=== PATIENT | female | born 1955 | race Hispanic/Latino ===

== ENCOUNTER → 2018-09-18 | Outpatient (CLI) | payer OTHER | END | disposition home or self-care (01) | LOC: RAH 09:02 | PROVIDERS: ATTEND Family Medicine | DX: Z12.31 Encounter for screening mammogram for malignant neoplasm of breast (principal) | CPT/HCPCS: 77067 ==

== ENCOUNTER → 2024-10-07 | Outpatient (CLI) | payer OTHER ==
[~2024-10-07] MED LIST: IOHEXOL 350 MG/ML 100ML INFUS..BTL IV ONE
--- NOTE | 2024-10-07 14:06 | HMCIMG ---
CT NECK SOFT TISS W/CONTRAST HISTORY: Post thyroidectomy COMPARISON: None TECHNIQUE: Multiple sequential axial images of the soft tissue neck were obtained. Patient was given 100 cc of Omnipaque through intravenous route. FINDINGS: There are streak artifacts caused by dental implant material limiting evaluation. Thyroid gland has been removed. There are degenerative changes of the cervical spine with spondylosis. There are enlargement of the left sternocleidomastoid muscle when compared to right may be related to inflammatory changes with other possibility not excluded. Clinical correlation is recommended. Postop changes are also seen. Visualized portion of brain parenchyma within the posterior fossa is within normal limits. Parapharyngeal fat planes are preserved bilaterally. Parotid glands and submandibular glands are grossly within normal limits. There are normal size cervical lymph nodes. The airway is patent. Visualized portion of the lung apices are unremarkable. IMPRESSION: 1. There are streak artifacts caused by dental implant material limiting evaluation. Thyroid gland has been removed. There are degenerative changes of the cervical spine with spondylosis. There are enlargement of the left sternocleidomastoid muscle when compared to right may be related to inflammatory changes with other possibility not excluded. Clinical correlation is recommended. Postop changes are also seen. CT was performed with one or more following dose reduction techniques: automated exposure control, adjustment of the mA and kv according to patient's size, or use of a iterative reconstruction technique.
== END | disposition home or self-care (01) ==
LOC: RAH 12:41
PROVIDERS: ATTEND Surgery
DX: M62.89 Other specified disorders of muscle (principal); R22.1 Localized swelling, mass and lump, neck; M47.812 Spondylosis without myelopathy or radiculopathy, cervical region; E89.0 Postprocedural hypothyroidism; Z96.5 Presence of tooth-root and mandibular implants
CPT/HCPCS: 70491; Q9967

== ENCOUNTER 2024-11-01 14:31 | Inpatient (IN) | payer OTHER ==
[~2024-11-01] VITALS: Ht 157.5 cm; Wt 61.4 kg
--- NOTE | 2024-11-01 14:42 | ERN ---
ED Note History of Present Illness Stated Complaint: INSECT BITE Chief Complaint: Insect Bite Time Seen by MD: 14:34 Dictation: PATIENT IS A 69-YEAR-OLD FEMALE HERE WITH PAINFUL SWELLING AND A PUSTULE TO THE DORSUM OF THE PROXIMAL LEFT 5TH FINGER ONSET ONE WEEK PRIOR TO ARRIVAL. IT IS ERYTHEMATOUS AND SWOLLEN PATIENT HAS BEEN ON [id number] FOR SEVERAL DAYS BY HER PRIMARY CARE DOCTOR. NO FEVER NO CHILLS Allergies: Coded Allergies: No Known Drug Allergies (Unverified Allergy, Unknown, 11/01/24) Past Medical History History: Not Applicable RN Note Reviewed/Agreed w/PFSH: Yes Review of System Dictation CONSTITUTIONAL: NEGATIVE EXCEPT FOR HPI HEAD/FACE: NEGATIVE EXCEPT FOR HPI EENT: NEGATIVE EXCEPT FOR HPI RESPIRATORY: NEGATIVE EXCEPT FOR HPI GASTROINTESTINAL/ABDOMINAL: NEGATIVE EXCEPT FOR HPI GENITOURINARY: NEGATIVE EXCEPT FOR HPI MUSCULOSKELETAL: NEGATIVE EXCEPT FOR HPI LEFT 5TH FINGER SWELLING ERYTHEMA TENDERNESS WITH PUSTULE INTEGUMENTARY: NEGATIVE EXCEPT FOR HPI NEUROLOGICAL/PSYCH: NEGATIVE EXCEPT FOR HPI HEMATOLOGIC/LYMPHATIC: NEGATIVE EXCEPT FOR HPI ALL SYSTEMS NEGATIVE, EXCEPT NOTED ABOVE. 13 POINT REVIEW OF SYSTEMS ASSESSED AND ALL NEGATIVE EXCEPT FOR ABOVE. Initial Vital Sign VS Vital Signs Date Time Temp Pulse Resp B/P (MAP) Pulse Ox O2 Delivery O2 Flow Rate FiO2 11/01/24 14:35 99.0 102 20 162/82 97 0 11/01/24 14:41 Room Air* 21 Physical Exam Dictation VITAL SIGNS REVIEWED GENERAL APPEARANCE: ALERT, ORIENTED X 3, MODERATE ACUTE DISTRESS, WELL DEVELOPED, NOURISHED. HEAD AND FACE: NON-TRAUMATIC. EYES: PERRL, PINK CONJUNCTIVAS, EYELID NO TRAUMA, ANTERIOR CHAMBER WITH ARCUS SENILIS. EARS: PINNAS INTACT AND NO SIGNS OF TRAUMA OR ERYTHEMA EAR CANALS CLEAR AND NO DISCHARGE TM NO ERYTHEMA NOSE: NO DISCHARGE, NO BLEEDING. OROPHARYNX: MOUTH NORMAL, TONGUE PINK, PHARYNX CLEAR,NO ERYTHEMA, TONSILS NO EXUDATES, NO ABSCESSES NOTED, MUCOUS MEMBRANE MOIST NECK: SUPPLE, NON-TENDER, NO THYROMEGALY, NO MASSES, NO JVD, NO BRUITS BREAST:DEFERRED CHEST:NO TENDERNESS, NO CREPITUS, NO PARADOXICAL MOVEMENT, NO RETRACTIONS LUNGS:CLEAR, WELL-VENTILATED, SYMMETRIC, NO RALES, NO WHEEZING, NO RHONCHI, NO STRIDOR, GOOD BREATH SOUNDS BILATERALLY HEART: REGULAR RATE, REGULAR RHYTHM, NO MURMUR, NO GALLOPS VASCULAR: NO PERIPHERAL EDEMA, ABDOMEN: SOFT, POSITIVE BOWEL SOUNDS, NONDISTENDED, NO GUARDING, NONTENDER, NO REBOUND, NO MASSES NO HEPATOMEGALY, NO SPLENOMEGALY, NO MOYA'S SIGN, NO HERNIAS. RECTAL: DEFERRED GENITAL: DEFERRED NEUROLOGICAL: NORMAL SPEECH, MOTOR FUNCTION INTACT, SENSORY FUNCTION INTACT MUSCULOSKELETAL: NECK NONTENDER, FULL RANGE OF MOTION, BACK NONTENDER, FULL RANGE OF MOTION, EXTREMITIES: DORSAL LEFT 5TH FINGER PROXIMAL WITH ERYTHEMA SWELLING, swelling extends who metacarpal joint SKIN: COLOR PINK, DRY, NO TURGOR, NO RASH, NO LACERATIONS, NO ABRASIONS, NO CONTUSIONS. LYMPHATIC: DEFERRED Results (Laboratory/Radiology) Laboratory/Radiology Laboratory Tests Test 11/01/24 14:53 White Blood Count 10.6 K/uL (4.8-10.8) Red Blood Count 4.10 MIL/uL (4.00-5.50) Hemoglobin 13.1 g/dL (12.0-16.0) Hematocrit 38.3 % (36-48) Mean Corpuscular Volume 93.4 fL (79-99) Mean Corpuscular Hemoglobin 32.0 pg (27.0-33.0) Mean Corpuscular Hemoglobin Concent 34.2 g/dL (32.0-36.0) Red Cell Distribution Width 13.1 % (11.0-15.5) Platelet Count 177 K/uL (130-400) Mean Platelet Volume 11.0 fL (7.5-10.5) H Immature Granulocyte % (Auto) 0.4 % (0-1) Neutrophils (%) (Auto) 78.7 % (40.0-77.0) H Lymphocytes (%) (Auto) 11.9 % (21.0-51.0) L Monocytes (%) (Auto) 8.2 % (3.0-13.0) Eosinophils (%) (Auto) 0.6 % (0.0-8.0) Basophils (%) (Auto) 0.2 % (0.0-5.0) Neutrophils # (Auto) 8.3 K/uL (1.8-7.7) H Lymphocytes # (Auto) 1.3 K/uL (1.0-4.8) Monocytes # (Auto) 0.9 K/uL (0.1-1.0) Eosinophils # (Auto) 0.06 K/uL (0.00-0.70) Basophils # (Auto) 0.02 K/uL (0.00-0.20) Absolute Immature Granulocyte (auto 0.04 K/uL (0-1) Nucleated Red Blood Cells 0.0 % (0.0-0.19) Sodium Level 138 mmol/L (136-145) Potassium Level 4.0 mmol/L (3.5-5.1) Chloride Level 101 mmol/L (101-111) Carbon Dioxide Level 32 mmol/L (21-32) Blood Urea Nitrogen 8 mg/dL (7-18) Creatinine 0.7 mg/dL (0.5-1.0) Glomerular Filtration Rate Calc 92 mL/min (>90) Random Glucose 118 mg/dL (70-105) H Lactic Acid Level 1.2 mmol/L (0.8-2.5) Total Calcium 9.4 mg/dL (8.5-10.1) Labs Reviewed?: Yes ED Course ED Course Orders Procedure Category Date Status Time Blood Cult RYAN 11/01/24 In Process 14:38 Lactic Acid LAB 11/01/24 Complete 14:38 Cbc With Differential LAB 11/01/24 Complete 14:38 Basic Metabolic Panel LAB 11/01/24 Complete 14:38 Lidocaine Hcl 1% 20ml PHA 11/01/24 Complete Vial (Lidocaine Hc 15:00 0.9%Nacl 1000ml (Ns PHA 11/01/24 Complete 1000ml) 18:00 Ketorolac PHA 11/01/24 Complete Tromethamine 30mg/Ml 18:00 Clindamycin Ivpb PHA 11/01/24 Complete 900mg/50ml (Cleocin 17:49 Hand 3+Vws Lt RAD 11/01/24 Taken 17:51 Lidocaine Hcl 1% 20ml PHA 11/01/24 Complete Vial (Lidocaine Hc 18:00 Current Medications Medications (Trade) Dose Ordered Sig/Deion Route PRN Reason Start Time Stop Time Status Last Admin Dose Admin Clindamycin HCl/ Dextrose (Cleocin Ivpb 900mg) 900 mg ONCE STAT IV 11/01/24 17:49 11/01/24 17:52 DC Ketorolac Tromethamine (toRADol) 30 mg ONCE ONCE IVP 11/01/24 18:00 11/01/24 18:01 DC Lidocaine HCl (Lidocaine HCl 1% 20ml Vial) 5 ml ONCE INJ 11/01/24 15:00 11/01/24 17:52 DC Lidocaine HCl (Lidocaine HCl 1% 20ml Vial) 5 ml ONCE ONCE INJ 11/01/24 18:00 11/01/24 18:01 DC Sodium Chloride 1,000 ml @ 0 mls/hr ONCE ONCE IV 11/01/24 18:00 11/01/24 18:01 DC Vital Signs Date Time Temp Pulse Resp B/P (MAP) Pulse Ox O2 Delivery O2 Flow Rate FiO2 11/01/24 16:42 98.4 85 19 151/83 97 Room Air* 0 21 11/01/24 14:41 99.0 97 20 162/82 97 Room Air* 0 21 11/01/24 14:35 99.0 102 20 162/82 97 0 Seventeen 50 patient reassessed and we will admit patient for cellulitis of the left 5th finger an outpatient treatment failure. She will be given IV fluids/Toradol and clindamycin 900 mg to load 1812 2, SPOKE WITH ONI CHINP HOSPITALIST FOR BENCHMARK SHE AGREED TO ADMIT PATIENT REVIEWED LABS Medical Decision Making MDM MDM: Differential diagnosis: Infected insect bite/cellulitis/electrolyte imbalance/dehydration/sepsis/osteo Rationale: Tests considered and ordered secondary to shared decision making include: labs, and radiology Previous outside records reviewed: Old ER visits. Reviewed Risk of complication and/or morbidity or mortality of patient management: None Medications-Per medication reconciliation none Need for hospitalization: Patient does meet criteria for hospitalization. See nurse's notes Need for emergency major/minor surgery: No There are no social concerns with this patient. Prescription drug management spoke with patient at length and she agrees to admission for finger cellulitis and failed outpatient treatment Prescriptions will include symptomatic care Patient's prior external medical records from other ER visits were reviewed by me as indicated. Prior testing and results from previous visits were reviewed. Prior tests were taken into account with medical decision making and resource utilization, independent historian/historians were used to obtain complete medical history. I independently interpreted the test that were performed, results were reviewed by me and considered findings on radiology if ordered. Medical management and examination interpretation discussions were had by me with other qualified healthcare professionals as indicated for the patient's care. DX & DISP Disposition: Inpatient Departure Impression: Primary Impression: Cellulitis of left little finger Additional Impressions: Failure of outpatient treatment, Hyperglycemia Condition: Stable Referrals: PRIYA LÓPEZ DO (PCP) Time of Disposition: 17:54 I have reviewed the case, and I agree with, Diagnosis and Plan MONI TOBIAS NP Nov 01, 2024 14:42
[2024-11-01] MEDS ORDERED: LIDOCAINE HCL 1% 20 ML VIAL INJ SCH (15:00)
[2024-11-01 15:03] LABS: BASOPHILS # (AUTO) 0.02 K/uL (0.00-0.20); BASOPHILS % (AUTO) 0.2 % (0.0-5.0); EOSINOPHILS # (AUTO) 0.06 K/uL (0.00-0.70); EOSINOPHILS % (AUTO) 0.6 % (0.0-8.0); HEMATOCRIT 38.3 % (36-48); IMMATURE GRANULOCYTE ABSOLUTE 0.04 K/uL (0-1); LYMPHOCYTES # (AUTO) 1.3 K/uL (1.0-4.8); LYMPHOCYTES % (AUTO) 11.9 % (21.0-51.0); MEAN CORPUSCULAR HGB CONC 34.2 g/dL (32.0-36.0); MEAN CORPUSCULAR VOLUME 93.4 fL (79-99); MONOCYTES # (AUTO) 0.9 K/uL (0.1-1.0); MONOCYTES % (AUTO) 8.2 % (3.0-13.0); NEUTROPHILS # (AUTO) 8.3 K/uL (1.8-7.7); NEUTROPHILS % (AUTO) 78.7 % (40.0-77.0); PLATELET COUNT (AUTO) 177 K/uL (130-400); RED CELL DISTRIBUTION WIDTH 13.1 % (11.0-15.5); WHITE BLOOD COUNT (AUTO) 10.6 K/uL (4.8-10.8)
[2024-11-01 15:15] LABS: CREATININE 0.7 mg/dL (0.5-1.0)
[2024-11-01] MEDS ORDERED: acetaMINOPHEN 325 MG TAB PO PRN (18:30)
[2024-11-01] MEDS ORDERED: acetaMINOPHEN 650 MG SUPPOSITORY RC PRN (18:30)
[2024-11-01] MEDS ORDERED: hydrALAZine 20MG/ML VIAL IV PRN (18:30)
[2024-11-01] MEDS ORDERED: doCUSate SODIUM 100 MG CAP PO PRN (18:30)
[2024-11-01] MEDS ORDERED: LACTULOSE 20 GM/30 ML UDCUP PO PRN (18:30)
[2024-11-01] MEDS ORDERED: TEMAZepam 15 MG CAPSULE PO PRN (18:30)
[2024-11-01] MEDS ORDERED: ondanSETRON 4MG INJ IVP PRN (18:30)
[2024-11-01] MEDS: 0.9%NACL 1000ML 1,000 ML IV ONE (19:12)
[2024-11-01] MEDS: CLINDAMYCIN IVPB 900MG/50ML IV STA (19:13)
[2024-11-01] MEDS: ketOROlac 30MG VIAL (30MG/ML) IVP ONE (19:13)
[2024-11-01] MEDS: LIDOCAINE HCL 1% 20 ML VIAL INJ ONE (19:13)
[2024-11-01 20:25] VITALS: BP 141/68; PULSE 90; RESP 18; TEMP 98.3
[2024-11-01] MEDS: ceFEPime HCL 1 GM VIAL IVPB SCH (20:59)
[2024-11-01] MEDS: INSULIN humuLIN R 100 UNIT/ML 3ML SQ SCH (21:00)
[2024-11-01] MEDS ORDERED: ATOR10TA69 PO (21:21)
[2024-11-01] MEDS ORDERED: ALEN70TA80 PO (21:21)
[2024-11-01] MEDS ORDERED: CALCIUM PO (21:21)
[2024-11-01] MEDS ORDERED: CHOLECALCIFEROL PO (21:21)
[2024-11-01] MEDS ORDERED: MULT-1203 PO (21:22)
--- NOTE | 2024-11-01 22:39 | HMCIMG ---
HAND 3+VWS LT INDICATION: Left 5th finger swelling tenderness erythema proximal TECHNIQUE: HAND 3+VWS LT. FINDINGS/IMPRESSION: No displaced fracture or dislocation is seen. Correlate clinically. There is diffuse soft tissue swelling of the fifth digit. Advanced degenerative changes of the first carpal metacarpal joint is seen
[2024-11-01 23:48] VITALS: BP 131/75; PULSE 72; RESP 18; TEMP 97.9
--- NOTE | 2024-11-02 01:53 | HP ---
[facility] HISTORY & PHYSICAL Date Patient Seen: Nov 02, 2024 Time of Visit: 01:53 Supervising Physician: Dr. Mark Ellis Primary Care Physician: Dr. Padma Elder Outpatient Specialists: Inpatient Consults: PROBLEM LIST: Sepsis without septic shock, POA Cellulitis of left fifth finger with failed outpatient treatment Diabetes mellitus with hyperglycemia Uncontrolled hypertension Hypercholesterolemia History of thyroid mass HPI: Ms. King is a 69-year-old female with a history of diabetes kelly itus and hypertension who presented to [facility] ED for evaluation of left finger edema and pustule onset one week prior to arrival. She reports that she believes that this was caused by insect bite. The patient reported that she was started on Augmentin 875 mg for several days by her PCP with no improvement. The patient denied any fevers, chills, any other problem or concern. The patient presented with a temperature 99.0 F, heart rate 102, respirations 20, blood pressure 162/82, 97% room air. WBC & lactic acid are WNL neut % 78.9, lymph % 11.9, neut # 8.3. Glusoce 118. The ED administered IV fluids, Toradol, and clindamycin 900 mg load. ED physician requested patient be admitted with the diagnosis of cellulitis of left finger, failed outpatient treatment, and hyperglycemia. I assessed the patient at bedside in 330. Patient's breathing was even, unlabored. Patient appeared comfortable was in no distress. She reports after IV antibiotic therapy these willingness a little down and has less pain. I informed the patient of labs, diagnosis, and plan of care. The patient verbalized understanding and is in agreement with the plan. Plan and assessment listed below. PAST MEDICAL HX: see above PAST SURGICAL HX: noncontributory SOCIAL HISTORY: No tobacco, ETOH, or illicit drug use Coded Allergies: No Known Drug Allergies (Unverified Allergy, Unknown, 11/01/24) REVIEW OF SYSTEMS: 12 point ROS reviewed with patient. Pertinent positives mentioned above. Otherwise negative. PHYSICAL EXAM: GENERAL: Alert, awake oriented x 3 HEENT: EOMI, Sclera non icteric, moist mucosa NECK: Supple, no JVD, trachea midline LUNGS: Clear breath sounds bilaterally. No wheezes HEART: Regular rate and rhythm. Normal S1 and S2, without murmurs ABD: Abdomen soft, nontender. Bowel sounds present EXT: No clubbing cyanosis or edema. Capillary refills and peripheral are within normal limits NEURO: Alert and oriented to person, follows commands Vital Signs (last 8hr) Date Time Temp Pulse Resp B/P (MAP) Pulse Ox O2 Delivery O2 Flow Rate FiO2 11/01/24 23:48 97.9 72 18 131/75 97 Room Air 11/01/24 21:15 Room Air* 0 21 11/01/24 20:25 98.2 90 18 141/68 97 Room Air LABS: Hematology Labs: Test 11/01/24 14:53 Range/Units White Blood Count 10.6 4.8-10.8 K/uL Red Blood Count 4.10 4.00-5.50 MIL/uL Hemoglobin 13.1 12.0-16.0 g/dL Hematocrit 38.3 36-48 % Mean Corpuscular Volume 93.4 79-99 fL Mean Corpuscular Hemoglobin 32.0 27.0-33.0 pg Mean Corpuscular Hemoglobin Concent 34.2 32.0-36.0 g/dL Red Cell Distribution Width 13.1 11.0-15.5 % Platelet Count 177 130-400 K/uL Mean Platelet Volume 11.0 H 7.5-10.5 fL Immature Granulocyte % (Auto) 0.4 0-1 % Neutrophils (%) (Auto) 78.7 H 40.0-77.0 % Lymphocytes (%) (Auto) 11.9 L 21.0-51.0 % Monocytes (%) (Auto) 8.2 3.0-13.0 % Eosinophils (%) (Auto) 0.6 0.0-8.0 % Basophils (%) (Auto) 0.2 0.0-5.0 % Neutrophils # (Auto) 8.3 H 1.8-7.7 K/uL Lymphocytes # (Auto) 1.3 1.0-4.8 K/uL Monocytes # (Auto) 0.9 0.1-1.0 K/uL Eosinophils # (Auto) 0.06 0.00-0.70 K/uL Basophils # (Auto) 0.02 0.00-0.20 K/uL Absolute Immature Granulocyte (auto 0.04 0-1 K/uL Nucleated Red Blood Cells 0.0 0.0-0.19 % Chemistry Labs: Test 11/01/24 14:53 Range/Units Sodium Level 138 136-145 mmol/L Potassium Level 4.0 3.5-5.1 mmol/L Chloride Level 101 101-111 mmol/L Carbon Dioxide Level 32 21-32 mmol/L Blood Urea Nitrogen 8 7-18 mg/dL Creatinine 0.7 0.5-1.0 mg/dL Glomerular Filtration Rate Calc 92 >90 mL/min Random Glucose 118 H 70-105 mg/dL Lactic Acid Level 1.2 0.8-2.5 mmol/L Total Calcium 9.4 8.5-10.1 mg/dL DIAGNOSTICS / RADIOLOGY RESULTS: [ ] PLAN Admit to medical floor. Obtain aerobic and anaerobic cultures. Continue clindamycin started in ED. Add cefepime IV. Reconcile home medications once available P.r.n. medications for: Pain management, fever, nausea, vomiting, constipation, hypertension. Glucometer checks a.c. and HS with insulin regular sliding scale per protocol. Monitor renal and liver function. Monitor electrolytes and treat accordingly. DVT and GI prophylaxis. A.m. labs NEURO: Minimize central acting medications as possible. Maintain fall precautions, adequate lighting during the day PULMONARY: Supplemental 02 as needed. Maintain aspiration precautions at all times CARDIOVASCULAR: Follow hemodynamics. Vital signs per facility protocol GI & NUTRITION: Continue with nutritional support. Continue stool softeners and laxatives as needed. KIDNEYS & ELECTROLYTES: Strict monitoring of intake, output and overall fluid balance. Avoid nephrotoxic medications to the extent possible. Medications to be dosed according to renal function. Monitor electrolytes and replace as needed ENDOCRINE: Maintain blood glucose between 100-180 at all times. Hypoglycemia protocol in place INFECTIOUS DISEASE: Trend temperature, WBC and procalcitonin level Follow cultures, deescalate antibiotics as soon as possible. Panculture if new onset fever ONCOLOGY/HEMATOLOGY/COAGULATION: Monitor for s/s of bleeding Monitor hemoglobin, coagulation studies as needed SKIN: Pressure ulcer prevention per facility protocol Specialty mattress ORTHO/REHAB: Continue PT/OT Prophylaxis: Continue GI and DVT prophylaxis Code Status: Full Resuscitation Disposition: TBD The patient has seen and evaluated, the case has been discussed with the SUPERVISOR STRIPPING, I agree with the clinical findings and plan of care, time spend at the bedside more than 40 minutes. MERCEDES COE Nov 02, 2024 01:53 MARK ELLIS MD Nov 07, 2024 09:55
[2024-11-02] MEDS: CLINDAMYCIN IVPB 600MG/50ML 50 ML IV SCH (02:01)
[2024-11-02 04:07] VITALS: BP 128/67; PULSE 71; RESP 16; TEMP 98.6
[2024-11-02 05:31] LABS: BASOPHILS # (AUTO) 0.02 K/uL (0.00-0.20); BASOPHILS % (AUTO) 0.3 % (0.0-5.0); EOSINOPHILS # (AUTO) 0.12 K/uL (0.00-0.70); EOSINOPHILS % (AUTO) 1.8 % (0.0-8.0); HEMATOCRIT 34.9 % (36-48); IMMATURE GRANULOCYTE ABSOLUTE 0.03 K/uL (0-1); LYMPHOCYTES # (AUTO) 1.1 K/uL (1.0-4.8); LYMPHOCYTES % (AUTO) 16.5 % (21.0-51.0); MEAN CORPUSCULAR HEMOGLOBIN 31.6 pg (27.0-33.0); MEAN CORPUSCULAR HGB CONC 33.2 g/dL (32.0-36.0); MEAN CORPUSCULAR VOLUME 95.1 fL (79-99); MONOCYTES # (AUTO) 0.8 K/uL (0.1-1.0); MONOCYTES % (AUTO) 11.6 % (3.0-13.0); NEUTROPHILS # (AUTO) 4.7 K/uL (1.8-7.7); NEUTROPHILS % (AUTO) 69.4 % (40.0-77.0); PLATELET COUNT (AUTO) 154 K/uL (130-400); RED BLOOD CELL COUNT(AUTO) 3.67 MIL/uL (4.00-5.50); RED CELL DISTRIBUTION WIDTH 12.9 % (11.0-15.5); WHITE BLOOD COUNT (AUTO) 6.8 K/uL (4.8-10.8)
[2024-11-02 06:04] LABS: CREATININE 0.6 mg/dL (0.5-1.0); MAGNESIUM 1.8 mg/dL (1.80-2.40); POTASSIUM 3.8 mmol/L (3.5-5.1); THYROID STIMULATING HORMONE 0.93 uIU/mL (0.36-3.74)
[2024-11-02 08:00] VITALS: BP 140/66; PULSE 78; RESP 18; TEMP 97.8
[2024-11-02] MEDS: PANTOPrazole 40 MG TAB DR PO SCH (10:34)
[2024-11-02] MEDS: ENOXAPARIN SODIUM 30 MG/0.3 ML SQ SCH (10:34)
[2024-11-02 12:00] VITALS: BP 143/65; PULSE 79; RESP 17; TEMP 97.8
[2024-11-02] MEDS: HYDROcodone/APAP 5/325 1 TAB TABLET PO PRN (13:59)
--- NOTE | 2024-11-02 15:31 | PN ---
[facility] PROGRESS NOTE Date Patient Seen: Nov 02, 2024 Time of Visit: 15:27 Supervising Physician: [Dr. Escobedo] Primary Care Physician: Dr. Padma Elder Outpatient Specialists: Inpatient Consults: PROBLEM LIST: Sepsis without septic shock, POA Cellulitis of left fifth finger with failed outpatient treatment Diabetes mellitus with hyperglycemia Uncontrolled hypertension Hypercholesterolemia History of thyroid mass INTERVAL HISTORY: [Blood pressure is 143/65 with a heart rate of 79, afebrile on room air. Patient was admitted for cellulitis of her left pinky. Her left digit is severely erythematous and inflamed with posteriorly debris noted. She is unable to bend her pinky due to the swelling. She failed outpatient treatment with Augmentin by her PCP. She has been initiated on clindamycin and cefepime. Her WBC today is 6, hemoglobin 11, platelets 154. Her BNP is within normal limits with a creatinine of 0.6, no electrolyte derangement. Her magnesium was 1.8 and TSH is 0.9. Blood cultures negative after24 hours. Pending wound cultures. Will consult general surgery for I&D.] REVIEW OF SYSTEMS: 12 point ROS reviewed with patient. Pertinent positives mentioned above. Otherwise negative. PHYSICAL EXAM: GENERAL: Alert, awake oriented x 3 HEENT: EOMI, Sclera non icteric, moist mucosa NECK: Supple, no JVD, trachea midline LUNGS: Clear breath sounds bilaterally. No wheezes HEART: Regular rate and rhythm. Normal S1 and S2, without murmurs ABD: Abdomen soft, nontender. Bowel sounds present EXT: No clubbing cyanosis or edema. Capillary refills and peripheral are within normal limits NEURO: Alert and oriented to person, follows commands Vital Signs (last 8hr) Date Time Temp Pulse Resp B/P (MAP) Pulse Ox O2 Delivery O2 Flow Rate FiO2 11/02/24 12:00 97.9 79 17 143/65 97 Room Air 21 11/02/24 08:00 97.9 78 18 140/66 96 Room Air 21 LABS: Hematology Labs: Test 11/02/24 04:51 Range/Units White Blood Count 6.8 # 4.8-10.8 K/uL Red Blood Count 3.67 L 4.00-5.50 MIL/uL Hemoglobin 11.6 L 12.0-16.0 g/dL Hematocrit 34.9 L 36-48 % Mean Corpuscular Volume 95.1 79-99 fL Mean Corpuscular Hemoglobin 31.6 27.0-33.0 pg Mean Corpuscular Hemoglobin Concent 33.2 32.0-36.0 g/dL Red Cell Distribution Width 12.9 11.0-15.5 % Platelet Count 154 130-400 K/uL Mean Platelet Volume 11.1 H 7.5-10.5 fL Immature Granulocyte % (Auto) 0.4 0-1 % Neutrophils (%) (Auto) 69.4 40.0-77.0 % Lymphocytes (%) (Auto) 16.5 L 21.0-51.0 % Monocytes (%) (Auto) 11.6 3.0-13.0 % Eosinophils (%) (Auto) 1.8 0.0-8.0 % Basophils (%) (Auto) 0.3 0.0-5.0 % Neutrophils # (Auto) 4.7 1.8-7.7 K/uL Lymphocytes # (Auto) 1.1 1.0-4.8 K/uL Monocytes # (Auto) 0.8 0.1-1.0 K/uL Eosinophils # (Auto) 0.12 0.00-0.70 K/uL Basophils # (Auto) 0.02 0.00-0.20 K/uL Absolute Immature Granulocyte (auto 0.03 0-1 K/uL Nucleated Red Blood Cells 0.0 0.0-0.19 % Chemistry Labs: Test 11/02/24 04:51 11/01/24 14:53 Range/Units Sodium Level 140 136-145 mmol/L Potassium Level 3.8 3.5-5.1 mmol/L Chloride Level 106 101-111 mmol/L Carbon Dioxide Level 28 21-32 mmol/L Blood Urea Nitrogen 8 7-18 mg/dL Creatinine 0.6 0.5-1.0 mg/dL Glomerular Filtration Rate Calc 96 >90 mL/min Random Glucose 90 70-105 mg/dL Total Calcium 8.4 L 8.5-10.1 mg/dL Phosphorus Level 4.0 2.5-4.9 mg/dL Magnesium Level 1.80 1.80-2.40 mg/dL Thyroid Stimulating Hormone (TSH) 0.93 0.36-3.74 uIU/mL Lactic Acid Level 1.2 0.8-2.5 mmol/L DIAGNOSTICS / RADIOLOGY RESULTS: [HAND 3+VWS LT INDICATION: Left 5th finger swelling tenderness erythema proximal TECHNIQUE: HAND 3+VWS LT. FINDINGS/IMPRESSION: No displaced fracture or dislocation is seen. Correlate clinically. There is diffuse soft tissue swelling of the fifth digit. Advanced degenerative changes of the first carpal metacarpal joint is seen] PLAN Admit to medical floor. Obtain aerobic and anaerobic cultures. Continue clindamycin started in ED. Add cefepime IV. Reconcile home medications once available P.r.n. medications for: Pain management, fever, nausea, vomiting, constipation, hypertension. Glucometer checks a.c. and HS with insulin regular sliding scale per protocol. Monitor renal and liver function. Monitor electrolytes and treat accordingly. DVT and GI prophylaxis. A.m. labs NEURO: Minimize central acting medications as possible. Maintain fall precautions, adequate lighting during the day PULMONARY: Supplemental 02 as needed. Maintain aspiration precautions at all times CARDIOVASCULAR: Follow hemodynamics. Vital signs per facility protocol GI & NUTRITION: Continue with nutritional support. Continue stool softeners and laxatives as needed. KIDNEYS & ELECTROLYTES: Strict monitoring of intake, output and overall fluid balance. Avoid nephrotoxic medications to the extent possible. Medications to be dosed according to renal function. Monitor electrolytes and replace as needed ENDOCRINE: Maintain blood glucose between 100-180 at all times. Hypoglycemia protocol in place INFECTIOUS DISEASE: Trend temperature, WBC and procalcitonin level Follow cultures, deescalate antibiotics as soon as possible. Panculture if new onset fever ONCOLOGY/HEMATOLOGY/COAGULATION: Monitor for s/s of bleeding Monitor hemoglobin, coagulation studies as needed SKIN: Pressure ulcer prevention per facility protocol Specialty mattress ORTHO/REHAB: Continue PT/OT Prophylaxis: Continue GI and DVT prophylaxis Code Status: Full Resuscitation Disposition: ADRIENNE NIETO Nov 02, 2024 15:31
[2024-11-02 16:00] VITALS: BP 157/73; PULSE 85; RESP 18; TEMP 97.9
[2024-11-02 20:00] VITALS: BP 160/75; PULSE 82; RESP 18; TEMP 98.4; O2SAT 97
[2024-11-02] MEDS: atorVAStatin 10 MG TABLET PO SCH (20:51)
[2024-11-03] VITALS (7 sets, daily range): BP systolic 121–141; BP diastolic 67–84; PULSE 73–97; RESP 18–20; TEMP 97.8–99; O2SAT 97–98
[2024-11-03 06:05] LABS: INR 0.99 (0.85-1.15); PROTHROMBIN TIME 11.1 SEC (9.6-11.6)
--- NOTE | 2024-11-03 07:36 | PN ---
[facility] PROGRESS NOTE Date Patient Seen: Nov 03, 2024 Time of Visit: 07:32 Supervising Physician: [Dr. Escobedo] Primary Care Physician: Dr. Padma Elder Outpatient Specialists: Inpatient Consults: PROBLEM LIST: Sepsis without septic shock, POA Cellulitis of left fifth finger with failed outpatient treatment Diabetes mellitus with hyperglycemia Uncontrolled hypertension Hypercholesterolemia History of thyroid mass INTERVAL HISTORY: [Blood pressure is 143/65 with a heart rate of 79, afebrile on room air. Patient was admitted for cellulitis of her left pinky. Her left digit is severely erythematous and inflamed with posteriorly debris noted. She is unable to bend her pinky due to the swelling. She failed outpatient treatment with Augmentin by her PCP. She has been initiated on clindamycin and cefepime. Her WBC today is 6, hemoglobin 11, platelets 154. Her BNP is within normal limits with a creatinine of 0.6, no electrolyte derangement. Her magnesium was 1.8 and TSH is 0.9. Blood cultures negative after24 hours. Pending wound cultures. Will consult general surgery for I&D.] 11/03 Labs show a WBC of 6, hgb-11, and platelets of 154. BMP is WNL without electrolyte disturbance with a creatinine of 0.6. Blood pressure is 141/73 with HR of 78, afebrile on room air. No osteo per hand X-ray. Blood culture is negative X 48 hrs. She continues on antibiotics, pending general surgery for I&D. Update: Nurse informed me that Dr. Davis does not perform I&D's on hand, will consult orthopedic surgery. REVIEW OF SYSTEMS: 12 point ROS reviewed with patient. Pertinent positives mentioned above. Otherwise negative. PHYSICAL EXAM: GENERAL: Alert, awake oriented x 3 HEENT: EOMI, Sclera non icteric, moist mucosa NECK: Supple, no JVD, trachea midline LUNGS: Clear breath sounds bilaterally. No wheezes HEART: Regular rate and rhythm. Normal S1 and S2, without murmurs ABD: Abdomen soft, nontender. Bowel sounds present EXT: No clubbing cyanosis or edema. Capillary refills and peripheral are within normal limits NEURO: Alert and oriented to person, follows commands Vital Signs (last 8hr) Date Time Temp Pulse Resp B/P (MAP) Pulse Ox O2 Delivery O2 Flow Rate FiO2 11/03/ 04:00 99.0 78 18 141/73 96 Room Air 11/03/24 00:00 98.8 73 18 135/71 96 Room Air LABS: Hematology Labs: Test 11/02/24 04:51 Range/Units White Blood Count 6.8 # 4.8-10.8 K/uL Red Blood Count 3.67 L 4.00-5.50 MIL/uL Hemoglobin 11.6 L 12.0-16.0 g/dL Hematocrit 34.9 L 36-48 % Mean Corpuscular Volume 95.1 79-99 fL Mean Corpuscular Hemoglobin 31.6 27.0-33.0 pg Mean Corpuscular Hemoglobin Concent 33.2 32.0-36.0 g/dL Red Cell Distribution Width 12.9 11.0-15.5 % Platelet Count 154 130-400 K/uL Mean Platelet Volume 11.1 H 7.5-10.5 fL Immature Granulocyte % (Auto) 0.4 0-1 % Neutrophils (%) (Auto) 69.4 40.0-77.0 % Lymphocytes (%) (Auto) 16.5 L 21.0-51.0 % Monocytes (%) (Auto) 11.6 3.0-13.0 % Eosinophils (%) (Auto) 1.8 0.0-8.0 % Basophils (%) (Auto) 0.3 0.0-5.0 % Neutrophils # (Auto) 4.7 1.8-7.7 K/uL Lymphocytes # (Auto) 1.1 1.0-4.8 K/uL Monocytes # (Auto) 0.8 0.1-1.0 K/uL Eosinophils # (Auto) 0.12 0.00-0.70 K/uL Basophils # (Auto) 0.02 0.00-0.20 K/uL Absolute Immature Granulocyte (auto 0.03 0-1 K/uL Nucleated Red Blood Cells 0.0 0.0-0.19 % Chemistry Labs: Test 11/02/24 04:51 11/01/24 14:53 Range/Units Sodium Level 140 136-145 mmol/L Potassium Level 3.8 3.5-5.1 mmol/L Chloride Level 106 101-111 mmol/L Carbon Dioxide Level 28 21-32 mmol/L Blood Urea Nitrogen 8 7-18 mg/dL Creatinine 0.6 0.5-1.0 mg/dL Glomerular Filtration Rate Calc 96 >90 mL/min Random Glucose 90 70-105 mg/dL Total Calcium 8.4 L 8.5-10.1 mg/dL Phosphorus Level 4.0 2.5-4.9 mg/dL Magnesium Level 1.80 1.80-2.40 mg/dL Thyroid Stimulating Hormone (TSH) 0.93 0.36-3.74 uIU/mL Lactic Acid Level 1.2 0.8-2.5 mmol/L Coagulation Labs: Test 11/03/24 05:37 Range/Units Prothrombin Time 11.1 9.6-11.6 SEC Prothromb Time International Ratio 0.99 0.85-1.15 DIAGNOSTICS / RADIOLOGY RESULTS: [HAND 3+VWS LT INDICATION: Left 5th finger swelling tenderness erythema proximal TECHNIQUE: HAND 3+VWS LT. FINDINGS/IMPRESSION: No displaced fracture or dislocation is seen. Correlate clinically. There is diffuse soft tissue swelling of the fifth digit. Advanced degenerative changes of the first carpal metacarpal joint is seen] PLAN Pending orthopedic surgery Obtain aerobic and anaerobic cultures. Continue clindamycin started in ED. Add cefepime IV. Reconcile home medications once available P.r.n. medications for: Pain management, fever, nausea, vomiting, constipation, hypertension. Glucometer checks a.c. and HS with insulin regular sliding scale per protocol. Monitor renal and liver function. Monitor electrolytes and treat accordingly. DVT and GI prophylaxis. A.m. labs NEURO: Minimize central acting medications as possible. Maintain fall precautions, adequate lighting during the day PULMONARY: Supplemental 02 as needed. Maintain aspiration precautions at all times CARDIOVASCULAR: Follow hemodynamics. Vital signs per facility protocol GI & NUTRITION: Continue with nutritional support. Continue stool softeners and laxatives as needed. KIDNEYS & ELECTROLYTES: Strict monitoring of intake, output and overall fluid balance. Avoid nephrotoxic medications to the extent possible. Medications to be dosed according to renal function. Monitor electrolytes and replace as needed ENDOCRINE: Maintain blood glucose between 100-180 at all times. Hypoglycemia protocol in place INFECTIOUS DISEASE: Trend temperature, WBC and procalcitonin level Follow cultures, deescalate antibiotics as soon as possible. Panculture if new onset fever ONCOLOGY/HEMATOLOGY/COAGULATION: Monitor for s/s of bleeding Monitor hemoglobin, coagulation studies as needed SKIN: Pressure ulcer prevention per facility protocol Specialty mattress ORTHO/REHAB: Continue PT/OT Prophylaxis: Continue GI and DVT prophylaxis Code Status: Full Resuscitation Disposition: TBD ADRIENNE JOYCE Nov 03, 2024 07:36
[2024-11-03] MEDS: MULTIVITAMIN TABLET PO SCH (08:38)
[2024-11-03] MEDS ORDERED: PoTASSium chl 10% ELIXIR 20MEQ 20 MEQ/15 ML UDCUP PO PRN (10:30)
[2024-11-03] MEDS ORDERED: PoTASSium chloRIDE 20MEQ/100ML 100 ML IV PRN (10:30)
[2024-11-03] MEDS: PoTASSium chloRIDE 20MEQ ER 20 MEQ ERTAB PO PRN (11:16)
[2024-11-03] MEDS: MAGNESIUM 2GM PREMIX 50ML 50 ML IV PRN (14:29)
[2024-11-04 04:00] VITALS: BP_SYST 109; BP_SYST 134; BP_DIAS 67; BP_DIAS 69; PULSE 69; PULSE 70; RESP 18; TEMP 98.3; TEMP 98.4
[2024-11-04 04:22] LABS: HEMATOCRIT 35.1 % (36-48); MEAN CORPUSCULAR HEMOGLOBIN 32.2 pg (27.0-33.0); MEAN CORPUSCULAR HGB CONC 34.2 g/dL (32.0-36.0); MEAN CORPUSCULAR VOLUME 94.1 fL (79-99); RED BLOOD CELL COUNT(AUTO) 3.73 MIL/uL (4.00-5.50); RED CELL DISTRIBUTION WIDTH 12.9 % (11.0-15.5); WHITE BLOOD COUNT (AUTO) 6.5 K/uL (4.8-10.8)
[2024-11-04 04:44] LABS: ALBUMIN 2.5 g/dL (3.5-5.0); BILIRUBIN,TOTAL 0.3 mg/dL (0.2-1.0); CREATININE 0.6 mg/dL (0.5-1.0); MAGNESIUM 2.5 mg/dL (1.80-2.40); POTASSIUM 4.3 mmol/L (3.5-5.1); TOTAL PROTEIN, SERUM 6.2 g/dL (6.0-8.3)
[2024-11-04 08:00] VITALS: BP 130/66; PULSE 71; RESP 18; TEMP 98.3; O2SAT 97
[2024-11-04 11:28] VITALS: BP 125/73; PULSE 76; RESP 18; TEMP 98
--- NOTE | 2024-11-04 12:07 | PN ---
[facility] PROGRESS NOTE Date Patient Seen: Nov 04, 2024 Time of Visit: 12:07 Supervising Physician: Filiberto Escobedo MD Primary Care Physician: Dr. Padma Elder Outpatient Specialists: Inpatient Consults: PROBLEM LIST: Sepsis without septic shock, POA Cellulitis with abscess of left fifth finger with failed outpatient treatment Diabetes mellitus with hyperglycemia Uncontrolled hypertension Hypercholesterolemia History of thyroid mass INTERVAL HISTORY: [Blood pressure is 143/65 with a heart rate of 79, afebrile on room air. Patient was admitted for cellulitis of her left pinky. Her left digit is severely erythematous and inflamed with posteriorly debris noted. She is unable to bend her pinky due to the swelling. She failed outpatient treatment with Augmentin by her PCP. She has been initiated on clindamycin and cefepime. Her WBC today is 6, hemoglobin 11, platelets 154. Her BNP is within normal limits with a creatinine of 0.6, no electrolyte derangement. Her magnesium was 1.8 and TSH is 0.9. Blood cultures negative after24 hours. Pending wound cultures. Will consult general surgery for I&D.] 11/03 Labs show a WBC of 6, hgb-11, and platelets of 154. BMP is WNL without electrolyte disturbance with a creatinine of 0.6. Blood pressure is 141/73 with HR of 78, afebrile on room air. No osteo per hand X-ray. Blood culture is negative X 48 hrs. She continues on antibiotics, pending general surgery for I&D. Update: Nurse informed me that Dr. Davis does not perform I&D's on hand, will consult orthopedic surgery. 11/04-patient is awake alert and oriented x3. Patient reports pain to LEs 4th and 5th fingers. Otherwise no other complaints she is in no apparent distress. Left 4th and 5th fingers with swelling and redness. Left 5th finger with crusty drainage with dark discoloration and yellow scab. Instructed RN to marked with skin marker in order to assess any increasing redness swelling. Per orthopedic surgeon Dr Easton patient to be scheduled tomorrow for incision and drainage. We will add MRSA coverage with vancomycin and continue with cefepime. stop clindamycin for now. Blood cultures has been negative for three days. Patient is hemodynamically stable and afebrile saturating 97% on room air. On laboratory CBC unremarkable, chemistry unremarkable with magnesium of 2.5. REVIEW OF SYSTEMS: 12 point ROS reviewed with patient. Pertinent positives mentioned above. Otherwise negative. PHYSICAL EXAM: GENERAL: Alert, awake oriented x 3 HEENT: EOMI, Sclera non icteric, moist mucosa NECK: Supple, no JVD, trachea midline LUNGS: Clear breath sounds bilaterally. No wheezes HEART: Regular rate and rhythm. Normal S1 and S2, without murmurs ABD: Abdomen soft, nontender. Bowel sounds present EXT: No clubbing cyanosis or edema. Capillary refills and peripheral are within normal limits NEURO: Alert and oriented to person, follows commands Vital Signs (last 8hr) Date Time Temp Pulse Resp B/P (MAP) Pulse Ox O2 Delivery O2 Flow Rate FiO2 11/04/24 11:28 98.1 76 18 125/73 98 Room Air 11/04/24 08:00 98.2 71 18 130/66 97 Room Air LABS: Hematology Labs: Test 11/04/24 04:10 Range/Units White Blood Count 6.5 4.8-10.8 K/uL Red Blood Count 3.73 L 4.00-5.50 MIL/uL Hemoglobin 12.0 12.0-16.0 g/dL Hematocrit 35.1 L 36-48 % Mean Corpuscular Volume 94.1 79-99 fL Mean Corpuscular Hemoglobin 32.2 27.0-33.0 pg Mean Corpuscular Hemoglobin Concent 34.2 32.0-36.0 g/dL Red Cell Distribution Width 12.9 11.0-15.5 % Platelet Count 176 130-400 K/uL Mean Platelet Volume 10.7 H 7.5-10.5 fL Nucleated Red Blood Cells 0.0 0.0-0.19 % Chemistry Labs: Test 11/04/24 10:56 11/04/24 04:10 Range/Units Whole Blood Glucose 116 H 70-110 MG/DL Sodium Level 139 136-145 mmol/L Potassium Level 4.3 3.5-5.1 mmol/L Chloride Level 106 101-111 mmol/L Carbon Dioxide Level 28 21-32 mmol/L Blood Urea Nitrogen 9 7-18 mg/dL Creatinine 0.6 0.5-1.0 mg/dL Glomerular Filtration Rate Calc 96 >90 mL/min Random Glucose 99 70-105 mg/dL Total Calcium 8.4 L 8.5-10.1 mg/dL Magnesium Level 2.50 H 1.80-2.40 mg/dL Total Bilirubin 0.3 0.2-1.0 mg/dL Aspartate Amino Transf (AST/SGOT) 20 10-37 U/L Alanine Aminotransferase (ALT/SGPT) 25 12-78 U/L Alkaline Phosphatase 71 50-136 U/L Total Creatine Kinase 80 21-232 U/L Total Protein 6.2 6.0-8.3 g/dL Albumin 2.5 L 3.5-5.0 g/dL Coagulation Labs: Test 11/03/24 05:37 Range/Units Prothrombin Time 11.1 9.6-11.6 SEC Prothromb Time International Ratio 0.99 0.85-1.15 DIAGNOSTICS / RADIOLOGY RESULTS: [ ] PLAN Scheduled for I&D of left 4th and 5th finger for tomorrow morning by Dr Easton Follow aerobic and anaerobic cultures. MRSA coverage with vancomycin. Continue cefepime IV. hemoglobin a1c in am Monitor renal and liver function. Monitor electrolytes and treat accordingly. DVT and GI prophylaxis. (Protonix and lovenox) A.m. labs NEURO: Minimize central acting medications as possible. Maintain fall precautions, adequate lighting during the day PULMONARY: Supplemental 02 as needed. Maintain aspiration precautions at all times CARDIOVASCULAR: Follow hemodynamics. Vital signs per facility protocol GI & NUTRITION: Continue with nutritional support. Continue stool softeners and laxatives as needed. KIDNEYS & ELECTROLYTES: Strict monitoring of intake, output and overall fluid balance. Avoid nephrotoxic medications to the extent possible. Medications to be dosed according to renal function. Monitor electrolytes and replace as needed ENDOCRINE: Maintain blood glucose between 100-180 at all times. Hypoglycemia protocol in place INFECTIOUS DISEASE: Trend temperature, WBC and procalcitonin level Follow cultures, deescalate antibiotics as soon as possible. Panculture if new onset fever ONCOLOGY/HEMATOLOGY/COAGULATION: Monitor for s/s of bleeding Monitor hemoglobin, coagulation studies as needed SKIN: Pressure ulcer prevention per facility protocol Specialty mattress ORTHO/REHAB: Continue PT/OT Prophylaxis: Continue GI and DVT prophylaxis Code Status: Full Resuscitation Disposition: LANI GUZMAN Nov 04, 2024 12:07
[2024-11-04] MEDS ORDERED: VANCOMYCIN PROTOCOL PER PHARMACY IV SCH (14:00)
[2024-11-04] MEDS: VANCOMYCIN 1.5 GM/250 ML BAG 250 ML IV ONE (15:18)
[2024-11-04 16:00] VITALS: BP 134/75; PULSE 79; RESP 20; TEMP 98
[2024-11-04 20:00] VITALS: BP 144/73; PULSE 77; RESP 17; TEMP 98.3; O2SAT 97
[2024-11-05] VITALS (24 sets, daily range): BP systolic 127–164; BP diastolic 69–91; PULSE 63–79; RESP 12–20; TEMP 97.5–98.6; O2SAT 97
[2024-11-05] MEDS: VANCOMYCIN 750MG VIAL IVPB SCH (06:07)
[2024-11-05 06:17] LABS: BASOPHILS # (AUTO) 0.03 K/uL (0.00-0.20); BASOPHILS % (AUTO) 0.5 % (0.0-5.0); EOSINOPHILS # (AUTO) 0.21 K/uL (0.00-0.70); EOSINOPHILS % (AUTO) 3.3 % (0.0-8.0); HEMATOCRIT 36.8 % (36-48); IMMATURE GRANULOCYTE ABSOLUTE 0.02 K/uL (0-1); LYMPHOCYTES # (AUTO) 1.7 K/uL (1.0-4.8); LYMPHOCYTES % (AUTO) 25.8 % (21.0-51.0); MEAN CORPUSCULAR HEMOGLOBIN 31.3 pg (27.0-33.0); MEAN CORPUSCULAR VOLUME 92.2 fL (79-99); MONOCYTES # (AUTO) 0.6 K/uL (0.1-1.0); NEUTROPHILS # (AUTO) 3.9 K/uL (1.8-7.7); NEUTROPHILS % (AUTO) 60.1 % (40.0-77.0); PLATELET COUNT (AUTO) 200 K/uL (130-400); RED BLOOD CELL COUNT(AUTO) 3.99 MIL/uL (4.00-5.50); RED CELL DISTRIBUTION WIDTH 12.9 % (11.0-15.5); WHITE BLOOD COUNT (AUTO) 6.4 K/uL (4.8-10.8)
[2024-11-05 06:32] LABS: CREATININE 0.6 mg/dL (0.5-1.0); POTASSIUM 4.4 mmol/L (3.5-5.1)
[2024-11-05 06:41] LABS: HEMOGLOBIN A1C 5.7 % (4.0-6.0)
--- NOTE | 2024-11-05 07:30 | NUR ---
PATIENT UPDATE PT SEPT OVERNIGHT, NPO POST MN. SCHEDULED FOR INCISION AND DEBRIDEMENT OF THE LEFT HAND, 4TH AND 5TH FINGER WOUND. CONTINUES WITH THE IV ANTIBIOTICS PER ORDER. TOLERATED WELL. SLEPT WELL OVERNIGHT. NO COMPLAINTS OF PAIN. REFUSED TO BE COVERED WITH THE INSULIN PER SLIDING SCALE COVERAGE, STATED THAT SHE DOESN'T USE THAT. UP AD KIRK, NO COMPLAINTS VOICED OUT.
[2024-11-05] MEDS ORDERED: dexaMETHasone SOD PHOSPHATE 10MG/ML 1ML VIAL ONE (11:03)
[2024-11-05] MEDS ORDERED: LIDOCAINE PF 100MG/5ML (2%) SYRINGE 5ML ONE (11:03)
[2024-11-05] MEDS ORDERED: MIDAZOLAM HCL 1 MG/ML 2ML VIAL ONE (11:03)
[2024-11-05] MEDS ORDERED: proPOFol 10 MG/ML 20ML VIAL IV ONE (11:03)
[2024-11-05] MEDS ORDERED: ondanSETRON 4MG INJ ONE (11:03)
[2024-11-05] MEDS ORDERED: FENTanyl CITRate PF 50 MCG/1 ML 2ML VIAL ONE (11:04)
[2024-11-05] MEDS ORDERED: ketOROlac 30MG VIAL (30MG/ML) ONE ×2 (11:45→11:52)
--- NOTE | 2024-11-05 12:45 | PN ---
[facility] PROGRESS NOTE Date Patient Seen: Nov 05, 2024 Time of Visit: 12:45 Supervising Physician: Abram Evans MD Primary Care Physician: Dr. Padma Elder Outpatient Specialists: Inpatient Consults: PROBLEM LIST: Sepsis without septic shock, POA Cellulitis with abscess of left fifth finger with failed outpatient treatment S/P I&D of left 4th and 5th finge 11/05/24 (DR Easton) Diabetes mellitus with hyperglycemia Uncontrolled hypertension Hypercholesterolemia History of thyroid mass INTERVAL HISTORY: [Blood pressure is 143/65 with a heart rate of 79, afebrile on room air. Patient was admitted for cellulitis of her left pinky. Her left digit is luciana rely erythematous and inflamed with posteriorly debris noted. She is unable to bend her pinky due to the swelling. She failed outpatient treatment with Augmentin by her PCP. She has been initiated on clindamycin and cefepime. Her WBC today is 6, hemoglobin 11, platelets 154. Her BNP is within normal limits with a creatinine of 0.6, no electrolyte derangement. Her magnesium was 1.8 and TSH is 0.9. Blood cultures negative after24 hours. Pending wound cultures. Will consult general surgery for I&D.] 11/03 Labs show a WBC of 6, hgb-11, and platelets of 154. BMP is WNL without electrolyte disturbance with a creatinine of 0.6. Blood pressure is 141/73 with HR of 78, afebrile on room air. No osteo per hand X-ray. Blood culture is negative X 48 hrs. She continues on antibiotics, pending general surgery for I&D. Update: Nurse informed me that Dr. Davis does not perform I&D's on hand, will consult orthopedic surgery. 11/04-patient is awake alert and oriented x3. Patient reports pain to LEs 4th and 5th fingers. Otherwise no other complaints she is in no apparent distress. Left 4th and 5th fingers with swelling and redness. Left 5th finger with crusty drainage with dark discoloration and yellow scab. Instructed RN to marked with skin marker in order to assess any increasing redness swelling. Per orthopedic surgeon Dr Easton patient to be scheduled tomorrow for incision and drainage. We will add MRSA coverage with vancomycin and continue with cefepime. stop clindamycin for now. Blood cultures has been negative for three days. Patient is hemodynamically stable and afebrile saturating 97% on room air. On laboratory CBC unremarkable, chemistry unremarkable with magnesium of 2.5. 11/05/24- patient is awake alert and oriented x3. Denies any complaints she is in no apparent distress hemodynamically stable and afebrile. She is status post I&D of left 4th and 5th finger. Dressing clean dry and intact with splint and Robert wrap. Capillary refill less than 2 seconds to all fingers to left hand. Otherwise laboratory unremarkable. She continues with cefepime and vancomycin. Pending wound cultures. REVIEW OF SYSTEMS: 12 point ROS reviewed with patient. Pertinent positives mentioned above. Otherwise negative. PHYSICAL EXAM: GENERAL: Alert, awake oriented x 3 HEENT: EOMI, Sclera non icteric, moist mucosa NECK: Supple, no JVD, trachea midline LUNGS: Clear breath sounds bilaterally. No wheezes HEART: Regular rate and rhythm. Normal S1 and S2, without murmurs ABD: Abdomen soft, nontender. Bowel sounds present EXT: No clubbing cyanosis or edema. dressing to left hand cleand dry and intact, dressing CDI, splint in place. cap refill < 2 secs to all fingers. NEURO: Alert and oriented to person, follows commands Vital Signs (last 8hr) Date Time Temp Pulse Resp B/P (MAP) Pulse Ox O2 Delivery O2 Flow Rate FiO2 11/05/24 12:35 70 15 154/80 100 Nasal Cannula 2.0 11/05/24 12:30 72 13 156/79 100 Nasal Cannula 2.0 11/05/24 12:25 72 14 155/78 100 Nasal Cannula 2.0 11/05/24 12:20 73 15 151/77 100 Nasal Cannula 2.0 11/05/24 12:15 69 14 143/72 100 Nonrebreathing Mask 100 11/05/24 12:10 73 13 143/75 100 Nonrebreathing Mask 100 11/05/24 12:05 63 12 133/69 100 Nonrebreathing Mask 100 11/05/24 12:00 97.5 63 13 127/71 100 Nonrebreathing Mask 100 11/05/24 08:00 97 Room Air* 0 21 LABS: Hematology Labs: Test 11/05/24 05:45 Range/Units White Blood Count 6.4 4.8-10.8 K/uL Red Blood Count 3.99 L 4.00-5.50 MIL/uL Hemoglobin 12.5 12.0-16.0 g/dL Hematocrit 36.8 36-48 % Mean Corpuscular Volume 92.2 79-99 fL Mean Corpuscular Hemoglobin 31.3 27.0-33.0 pg Mean Corpuscular Hemoglobin Concent 34.0 32.0-36.0 g/dL Red Cell Distribution Width 12.9 11.0-15.5 % Platelet Count 200 130-400 K/uL Mean Platelet Volume 10.5 7.5-10.5 fL Immature Granulocyte % (Auto) 0.3 0-1 % Neutrophils (%) (Auto) 60.1 40.0-77.0 % Lymphocytes (%) (Auto) 25.8 21.0-51.0 % Monocytes (%) (Auto) 10.0 3.0-13.0 % Eosinophils (%) (Auto) 3.3 0.0-8.0 % Basophils (%) (Auto) 0.5 0.0-5.0 % Neutrophils # (Auto) 3.9 1.8-7.7 K/uL Lymphocytes # (Auto) 1.7 1.0-4.8 K/uL Monocytes # (Auto) 0.6 0.1-1.0 K/uL Eosinophils # (Auto) 0.21 0.00-0.70 K/uL Basophils # (Auto) 0.03 0.00-0.20 K/uL Absolute Immature Granulocyte (auto 0.02 0-1 K/uL Nucleated Red Blood Cells 0.0 0.0-0.19 % Chemistry Labs: Test 11/05/24 05:45 11/04/24 19:23 11/04/24 04:10 Range/Units Sodium Level 140 136-145 mmol/L Potassium Level 4.4 3.5-5.1 mmol/L Chloride Level 107 101-111 mmol/L Carbon Dioxide Level 29 21-32 mmol/L Blood Urea Nitrogen 9 7-18 mg/dL Creatinine 0.6 0.5-1.0 mg/dL Glomerular Filtration Rate Calc 96 >90 mL/min Random Glucose 93 70-105 mg/dL Hemoglobin A1c 5.7 4.0-6.0 % Estimated Average Glucose (eAG) 117 70-126 mg/dL Total Calcium 8.8 8.5-10.1 mg/dL Whole Blood Glucose 180 #H 70-110 MG/DL Magnesium Level 2.50 H 1.80-2.40 mg/dL Total Bilirubin 0.3 0.2-1.0 mg/dL Aspartate Amino Transf (AST/SGOT) 20 10-37 U/L Alanine Aminotransferase (ALT/SGPT) 25 12-78 U/L Alkaline Phosphatase 71 50-136 U/L Total Creatine Kinase 80 21-232 U/L Total Protein 6.2 6.0-8.3 g/dL Albumin 2.5 L 3.5-5.0 g/dL DIAGNOSTICS / RADIOLOGY RESULTS: [ ] PLAN Post I&D Follow aerobic and anaerobic cultures. MRSA coverage with vancomycin. Continue cefepime IV. hemoglobin a1c in am Monitor renal and liver function. Monitor electrolytes and treat accordingly. DVT and GI prophylaxis. (Protonix and lovenox) A.m. labs NEURO: Minimize central acting medications as possible. Maintain fall precautions, adequate lighting during the day PULMONARY: Supplemental 02 as needed. Maintain aspiration precautions at all times CARDIOVASCULAR: Follow hemodynamics. Vital signs per facility protocol GI & NUTRITION: Continue with nutritional support. Continue stool softeners and laxatives as needed. KIDNEYS & ELECTROLYTES: Strict monitoring of intake, output and overall fluid balance. Avoid nephrotoxic medications to the extent possible. Medications to be dosed according to renal function. Monitor electrolytes and replace as needed ENDOCRINE: Maintain blood glucose between 100-180 at all times. Hypoglycemia protocol in place INFECTIOUS DISEASE: Trend temperature, WBC and procalcitonin level Follow cultures, deescalate antibiotics as soon as possible. Panculture if new onset fever ONCOLOGY/HEMATOLOGY/COAGULATION: Monitor for s/s of bleeding Monitor hemoglobin, coagulation studies as needed SKIN: Pressure ulcer prevention per facility protocol Specialty mattress ORTHO/REHAB: Continue PT/OT Prophylaxis: Continue GI and DVT prophylaxis Code Status: Full Resuscitation Disposition: LANI GUZMAN Nov 05, 2024 12:45
--- NOTE | 2024-11-05 20:30 | OP ---
DATE OF PROCEDURE: 11/05/2024 PREOPERATIVE DIAGNOSIS: Left hand fourth and fifth digit extensor tenosynovitis. POSTOPERATIVE DIAGNOSIS: Left hand fourth and fifth digit extensor tenosynovitis. PROCEDURES PERFORMED: * Incision and drainage of left hand fourth extensor tenosynovitis. * Incision and drainage of left hand fifth digit extensor tenosynovitis. IV FLUIDS: As per Anesthesia. ESTIMATED BLOOD LOSS: Minimal. COMPLICATIONS: None. SPECIMENS SENT: Yes. IMPLANTS USED: None. INDICATIONS FOR THE PROCEDURE: This is a 69-year-old lady who has tried some oral antibiotics for a left hand deep infection involving the fourth and fifth digits extensor tenosynovitis, but the symptoms did not resolve, and therefore, the patient has been admitted to the hospital. I discussed her condition and the prognosis and the treatment options available and the risks and benefits. All her questions and concerns were answered in detail. The patient verbalized understanding of the entire treatment conversation and preferred with the incision and drainage. DESCRIPTION OF PROCEDURE: The patient was correctly identified in the preoperative holding area and the correct patient, correct procedure site, correct extremity, correct plan were confirmed and marked. Then, the patient was taken to the operating room, placed in the supine position, underwent general anesthesia by the anesthetic team. After that, the left upper extremity was then prepped and draped in a sterile fashion. A repeat timeout was done, identifying the correct patient, correct procedure site, correct extremity, and the correct plan. Subsequently, we made 2 incisions on the dorsum of the left hand fourth and fifth digits. Immediately pus came out, which was sent for culture from both the fingers. We then used a hemostat to break loculations throughout the fourth and fifth digit and beneath the fascia and the extensor tendon sheath also. Both the tendon sheaths were opened up and then cleaned. All unhealthy tissue was sent for cultures and washed out well. Once we felt we had done a satisfactory debridement, we then washed with over 3 L of normal saline. After that, we packed both the wounds with quarter-inch Nu Gauze. Soft tissue dressing was applied. Plan is postoperatively to do daily dressing changes with a quarter-inch Nu Gauze after the patient takes a shower. The patient will need IV antibiotics for the infection. Ortho will continue to follow the patient after the surgery. TID: [id number] RECEIPT: [id number]
[2024-11-06] VITALS (8 sets, daily range): BP systolic 113–138; BP diastolic 59–74; PULSE 64–80; RESP 16–20; TEMP 97.3–98.3; O2SAT 96–98
--- NOTE | 2024-11-06 00:55 | CONS ---
REASON FOR CONSULTATION: This is a 69-year-old lady consulted for left hand fourth and fifth digit infection. CONSULTING PHYSICIAN: Mark Ellis MD CONSULTING SERVICE: Hospitalist Services. REASON FOR CONSULTATION: Left hand deep abscess and infection of the fourth and fifth digits. HISTORY OF PRESENT ILLNESS: A 69-year-old lady who has noticed initially some pain and some redness to the left hand fourth and fifth digits, progressively has gotten worse. This happened over a period of 10 to 14 days. She has taken some local antibiotics, but that did not help and therefore, she has been admitted to the [facility]. She was given some amoxicillin with some cream, but by Sunday night, the pain and swelling become significantly worse. No history of any trauma or falls. No history of any insect bite. PAST MEDICAL HISTORY: Positive for hypertension. PAST SURGICAL HISTORY: None. ALLERGIES: None. SOCIAL HISTORY: Does not smoke, does not drink alcohol or use illegal drugs. MEDICATIONS: Reviewed. FAMILY HISTORY: Nothing significant. REVIEW OF SYSTEMS: Twelve-system review of systems was obtained and is negative. PHYSICAL EXAMINATION: GENERAL: The patient is awake, alert, oriented x 3. LATEST VITAL SIGNS: Heart rate 84, respiratory rate is 15, blood pressure 138/78, oxygen saturation 100%. HEENT: Normocephalic, atraumatic. NECK: No engorged vein. CHEST: Symmetric movement is seen. HEART: Regular rate and rhythm. ABDOMEN: Soft, nontender, nondistended. PELVIS: No tenderness on pelvis on compression or distraction. EXTREMITIES: Examination of the left hand, left upper extremity shows significant swelling and blister formation seen around the dorsum of the left hand fourth and fifth digits with pockets of pus seen. Significant swelling of the fourth and fifth digits present. Fingers are warm and pink. Good capillary refill is present. Decreased sensation over the fourth and fifth digits. INVESTIGATIONS: Laboratory investigations were reviewed. X-rays were also reviewed. ASSESSMENT AND PLAN: A 69-year-old lady with fourth and fifth digit extensor tenosynovitis along with significant pus formation. I told the treatment options available and the risks and benefits. All her questions and concerns were answered in detail. The patient verbalized understanding. I told the risks of not doing the surgery and she may lose her fingers also. The patient agreed with the plan for incision and drainage of fourth and fifth digit extensor tenosynovitis. Informed consent was obtained. LORRIE: 11/05/2024 08:11 PM TID: [id number] RECEIPT: [id number]
[2024-11-06 05:28] LABS: BASOPHILS # (AUTO) 0.02 K/uL (0.00-0.20); BASOPHILS % (AUTO) 0.2 % (0.0-5.0); EOSINOPHILS % (AUTO) 1.2 % (0.0-8.0); HEMATOCRIT 34.8 % (36-48); IMMATURE GRANULOCYTE ABSOLUTE 0.04 K/uL (0-1); LYMPHOCYTES # (AUTO) 1.7 K/uL (1.0-4.8); LYMPHOCYTES % (AUTO) 20.6 % (21.0-51.0); MEAN CORPUSCULAR HEMOGLOBIN 31.5 pg (27.0-33.0); MEAN CORPUSCULAR HGB CONC 33.6 g/dL (32.0-36.0); MEAN CORPUSCULAR VOLUME 93.8 fL (79-99); MONOCYTES # (AUTO) 0.8 K/uL (0.1-1.0); MONOCYTES % (AUTO) 8.9 % (3.0-13.0); NEUTROPHILS # (AUTO) 5.8 K/uL (1.8-7.7); NEUTROPHILS % (AUTO) 68.6 % (40.0-77.0); PLATELET COUNT (AUTO) 209 K/uL (130-400); RED BLOOD CELL COUNT(AUTO) 3.71 MIL/uL (4.00-5.50); RED CELL DISTRIBUTION WIDTH 12.8 % (11.0-15.5); WHITE BLOOD COUNT (AUTO) 8.5 K/uL (4.8-10.8)
[2024-11-06 05:54] LABS: CREATININE 0.7 mg/dL (0.5-1.0); POTASSIUM 4.2 mmol/L (3.5-5.1); VANCOMYCIN TROUGH 12.1 UG/ML (10.0-20.0)
--- NOTE | 2024-11-06 15:45 | CONS ---
CONSULTATION NOTE Date of Service: Nov 06, 2024 Reason for Consultation: [ Surgical wound: S/P I&D Left hand dorsum & left 5th finger ] Requesting Physician: [ Hospitalist ] HISTORY OF PRESENT ILLNESS: [ 11/06/24 69 yo female presents to ED for swelling to pustule to dorsum of proximal left 5th finger. On 11/05/23 Pt had I&D procedure done by Dr. Easton. Wound care consulted for s/p I&D care. Pt seen at bedside. Primary nurse Neci at visit. Family not present during visit.] REVIEW OF SYSTEMS CONSTITUTIONAL: Denies fever, chills, or fatigue. HEAD/FACE: No signs of trauma. EENT: Denies eye pain, blurred vision, double vision, or light sensitivity. RESPIRATORY: Denies shortness of breath, cough, wheezing CARDIOVASCULAR: Denies chest pain, palpitation, syncope GASTROINTESTINAL/ABDOMINAL: Denies abdominal pain, constipation, diarrhea, nausea or vomiting GENITOURINARY: Denies dysuria or hematuria. MUSCULOSKELETAL: Denies joint pain, tenderness, or trauma. Some pain to left hand s/p I&D. INTEGUMENTARY: Denies rash or itchiness NEUROLOGICAL/PSYCH: Denies anxiety, depression, heat or cold intolerance. PAST MEDICAL HISTORY: [ DM, HTN ] PAST SURGICAL HISTORY: [None ] PAST SOCIAL HISTORY: [ Negative] FAMILY HISTORY: [ Noncontributory ] Coded Allergies: No Known Drug Allergies (Unverified Allergy, Unknown, 11/01/24) PHYSICAL EXAM EYES: Anicteric. Pupils equal and reactive. HENT: No oral thrush seen, moist Oral mucosa NECK: Supple, no JVD or thyromegaly. LUNGS: Good air entry. No rales, no rhonchi. CARDIOVASCULAR: S1, S2 regular. No murmur heard. ABDOMEN: Soft, non tender, bowel sounds present, no organomegaly CENTRAL NERVOUS SYSTEM: Awake, alert, oriented x 3. No focal deficits. SKIN: No rashes, no swelling. LYMPHATICS: No peripheral lymphadenopathy MUSCULOSKELETAL: No joint swelling, erythema or tenderness. LEFT HAND: S/P I&D INCISION TO LEFT HAND DORSUM & LEFT 5TH FINGER, NO ERYTHEMA, NO PUS EXTREMITIES: No cyanosis or clubbing BACK: No deformity, no pressure ulcer. GENITOURINARY: No dysuria or hematuria Vital Sign (Last 24 Hours) 11/06/24 11/06/24 08:05 11:21 Temp 98.2 Pulse 67 Resp 16 B/P (MAP) 131/72 Pulse Ox 97 O2 Delivery Room Air O2 Flow Rate 0 FiO2 21 Intake & Output (last 24hrs) 11/05/24 11/05/24 11/06/24 15:00 23:00 07:00 Intake Total 250.0 ml 600 ml Output Total 850 ml 800 ml Balance -600.0 ml -200 ml LABS: Laboratory: Test 11/06/24 14:53 11/06/24 05:15 11/05/24 05:45 Range/Units Whole Blood Glucose 103 70-110 MG/DL White Blood Count 8.5 # 4.8-10.8 K/uL Red Blood Count 3.71 L 4.00-5.50 MIL/uL Hemoglobin 11.7 L 12.0-16.0 g/dL Hematocrit 34.8 L 36-48 % Mean Corpuscular Volume 93.8 79-99 fL Mean Corpuscular Hemoglobin 31.5 27.0-33.0 pg Mean Corpuscular Hemoglobin Concent 33.6 32.0-36.0 g/dL Red Cell Distribution Width 12.8 11.0-15.5 % Platelet Count 209 130-400 K/uL Mean Platelet Volume 10.5 7.5-10.5 fL Immature Granulocyte % (Auto) 0.5 0-1 % Neutrophils (%) (Auto) 68.6 40.0-77.0 % Lymphocytes (%) (Auto) 20.6 L 21.0-51.0 % Monocytes (%) (Auto) 8.9 3.0-13.0 % Eosinophils (%) (Auto) 1.2 0.0-8.0 % Basophils (%) (Auto) 0.2 0.0-5.0 % Neutrophils # (Auto) 5.8 1.8-7.7 K/uL Lymphocytes # (Auto) 1.7 1.0-4.8 K/uL Monocytes # (Auto) 0.8 0.1-1.0 K/uL Eosinophils # (Auto) 0.10 0.00-0.70 K/uL Basophils # (Auto) 0.02 0.00-0.20 K/uL Absolute Immature Granulocyte (auto 0.04 0-1 K/uL Nucleated Red Blood Cells 0.0 0.0-0.19 % Sodium Level 142 136-145 mmol/L Potassium Level 4.2 3.5-5.1 mmol/L Chloride Level 106 101-111 mmol/L Carbon Dioxide Level 28 21-32 mmol/L Blood Urea Nitrogen 16 7-18 mg/dL Creatinine 0.7 0.5-1.0 mg/dL Glomerular Filtration Rate Calc 92 >90 mL/min Random Glucose 93 70-105 mg/dL Total Calcium 8.6 8.5-10.1 mg/dL Vancomycin Level Trough 12.1 10.0-20.0 UG/ML Hemoglobin A1c 5.7 4.0-6.0 % Estimated Average Glucose (eAG) 117 70-126 mg/dL DIAGNOSTICS / RADIOLOGY: [ ] PROBLEM LIST : Medical Problems: (1) Cellulitis of left little finger ICD Codes: L03.012 - Cellulitis of left finger (2) Failure of outpatient treatment ICD Codes: Z78.9 - Other specified health status (3) Hyperglycemia ICD Codes: R73.9 - Hyperglycemia, unspecified PLAN: [ Iodoform packing to both incisions once a day: left hand dorsum and left 5th finger Continue IV antibiotics ] HAILEY NO Nov 06, 2024 15:45
--- NOTE | 2024-11-06 15:50 | NUR ---
Discharge Planning: Pt. is S/P I&D by Dr. Easton to left hand abscess yesterday. As per Musa/YAS, [facility] will [facility]. Still pending wound cultures for abx recommendations.
--- NOTE | 2024-11-06 16:03 | NUR ---
[facility] Consult: Patient assessed by wound healing team. See wound assessment. Assessment and recommendations provided to primary nurse. Education provided. Wound care done. Addendum: 11/06/24 at 1604 by EDSON AREVALO RN RN/ Amended: Links added.
--- NOTE | 2024-11-06 21:59 | PN ---
SUBJECTIVE: This is a 69-year-old lady status post left hand fourth and fifth digit extensor tenosynovitis, treated with I and D, postop day #1. The patient is so far doing good. No acute events overnight. The patient is getting IV antibiotics. Awaiting cultures. PHYSICAL EXAMINATION: GENERAL: The patient is awake, alert, oriented x 3. EXTREMITIES: Examination of the left hand, left upper extremity shows packing material present to the left hand fourth and fifth digits. Swelling has gotten down. Erythema has gotten down. Fingers are warm and pink. Good capillary refill is present. ASSESSMENT AND PLAN: Continue daily packing. Continue IV antibiotics, follow up cultures. Ortho will continue to follow the patient. TID: [id number] RECEIPT: [id number]
[2024-11-06] MEDS: morPHINE 2 MG SYG ONE (23:30)
[2024-11-06] MEDS ORDERED: morPHINE 2 MG SYG IVP PRN (23:30)
[2024-11-07] VITALS (7 sets, daily range): BP systolic 110–146; BP diastolic 57–86; PULSE 61–71; RESP 16–21; TEMP 97.8–98.9; O2SAT 96–97
--- NOTE | 2024-11-07 00:51 | PN ---
[facility] PROGRESS NOTE Date Patient Seen: Nov 06, 2024 Time of Visit: 13: 00 Supervising Physician: Abram Evans Primary Care Physician: Dr. Padma Elder Outpatient Specialists: Inpatient Consults: PROBLEM LIST: Sepsis without septic shock, POA Cellulitis with abscess of left fifth finger with failed outpatient treatment S/P I&D of left 4th and 5th finge 11/05/24 (DR Easton) Diabetes mellitus with hyperglycemia Uncontrolled hypertension Hypercholesterolemia History of thyroid mass INTERVAL HISTORY: [Blood pressure is 143/65 with a heart rate of 79, afebrile on room air. Patient was admitted for cellulitis of her left pinky. Her left digit is severe ly erythematous and inflamed with posteriorly debris noted. She is unable to bend her pinky due to the swelling. She failed outpatient treatment with Augmentin by her PCP. She has been initiated on clindamycin and cefepime. Her WBC today is 6, hemoglobin 11, platelets 154. Her BNP is within normal limits with a creatinine of 0.6, no electrolyte derangement. Her magnesium was 1.8 and TSH is 0.9. Blood cultures negative after24 hours. Pending wound cultures. Will consult general surgery for I&D.] 11/03 Labs show a WBC of 6, hgb-11, and platelets of 154. BMP is WNL without electrolyte disturbance with a creatinine of 0.6. Blood pressure is 141/73 with HR of 78, afebrile on room air. No osteo per hand X-ray. Blood culture is negative X 48 hrs. She continues on antibiotics, pending general surgery for I&D. Update: Nurse informed me that Dr. Davis does not perform I&D's on hand, will consult orthopedic surgery. 11/04-patient is awake alert and oriented x3. Patient reports pain to LEs 4th and 5th fingers. Otherwise no other complaints she is in no apparent distress. Left 4th and 5th fingers with swelling and redness. Left 5th finger with crusty drainage with dark discoloration and yellow scab. Instructed RN to marked with skin marker in order to assess any increasing redness swelling. Per orthopedic surgeon Dr Easton patient to be scheduled tomorrow for incision and drainage. We will add MRSA coverage with vancomycin and continue with cefepime. stop clindamycin for now. Blood cultures has been negative for three days. Patient is hemodynamically stable and afebrile saturating 97% on room air. On laboratory CBC unremarkable, chemistry unremarkable with magnesium of 2.5. 11/05/24- patient is awake alert and oriented x3. Denies any complaints she is in no apparent distress hemodynamically stable and afebrile. She is status post I&D of left 4th and 5th finger. Dressing clean dry and intact with splint and Robert wrap. Capillary refill less than 2 seconds to all fingers to left hand. O therwise laboratory unremarkable. She continues with cefepime and vancomycin. Pending wound cultures. 11/06/24- pt with no major overnight events, wound care pending for today to left hand fingers w/ cap refill < 2 seconds. she reports pain is under control. Cultures pending. she continues on Cefepime and vancomycin for now. she will need DC planning for wound care. for now awaiting recs from ortho. lab unremarkable, REVIEW OF SYSTEMS: 12 point ROS reviewed with patient. Pertinent positives mentioned above. Otherwise negative. PHYSICAL EXAM: GENERAL: Alert, awake oriented x 3 HEENT: EOMI, Sclera non icteric, moist mucosa NECK: Supple, no JVD, trachea midline LUNGS: Clear breath sounds bilaterally. No wheezes HEART: Regular rate and rhythm. Normal S1 and S2, without murmurs ABD: Abdomen soft, nontender. Bowel sounds present EXT: No clubbing cyanosis or edema. dressing to left hand cleand dry and intact, dressing CDI, splint in place. cap refill < 2 secs to all fingers. NEURO: Alert and oriented to person, follows commands Vital Signs (last 8hr) Date Time Temp Pulse Resp B/P (MAP) Pulse Ox O2 Delivery O2 Flow Rate FiO2 11/07/24 00:00 97.9 71 18 135/73 93 Room Air 11/06/24 21:00 96 Room Air* 0 21 11/06/24 19:00 97.5 71 18 113/59 96 Room Air LABS: Hematology Labs: Test 11/06/24 05:15 Range/Units White Blood Count 8.5 # 4.8-10.8 K/uL Red Blood Count 3.71 L 4.00-5.50 MIL/uL Hemoglobin 11.7 L 12.0-16.0 g/dL Hematocrit 34.8 L 36-48 % Mean Corpuscular Volume 93.8 79-99 fL Mean Corpuscular Hemoglobin 31.5 27.0-33.0 pg Mean Corpuscular Hemoglobin Concent 33.6 32.0-36.0 g/dL Red Cell Distribution Width 12.8 11.0-15.5 % Platelet Count 209 130-400 K/uL Mean Platelet Volume 10.5 7.5-10.5 fL Immature Granulocyte % (Auto) 0.5 0-1 % Neutrophils (%) (Auto) 68.6 40.0-77.0 % Lymphocytes (%) (Auto) 20.6 L 21.0-51.0 % Monocytes (%) (Auto) 8.9 3.0-13.0 % Eosinophils (%) (Auto) 1.2 0.0-8.0 % Basophils (%) (Auto) 0.2 0.0-5.0 % Neutrophils # (Auto) 5.8 1.8-7.7 K/uL Lymphocytes # (Auto) 1.7 1.0-4.8 K/uL Monocytes # (Auto) 0.8 0.1-1.0 K/uL Eosinophils # (Auto) 0.10 0.00-0.70 K/uL Basophils # (Auto) 0.02 0.00-0.20 K/uL Absolute Immature Granulocyte (auto 0.04 0-1 K/uL Nucleated Red Blood Cells 0.0 0.0-0.19 % Chemistry Labs: Test 11/06/24 19:46 11/06/24 05:15 11/05/24 05:45 Range/Units Whole Blood Glucose 141 H 70-110 MG/DL Sodium Level 142 136-145 mmol/L Potassium Level 4.2 3.5-5.1 mmol/L Chloride Level 106 101-111 mmol/L Carbon Dioxide Level 28 21-32 mmol/L Blood Urea Nitrogen 16 7-18 mg/dL Creatinine 0.7 0.5-1.0 mg/dL Glomerular Filtration Rate Calc 92 >90 mL/min Random Glucose 93 70-105 mg/dL Total Calcium 8.6 8.5-10.1 mg/dL Hemoglobin A1c 5.7 4.0-6.0 % Estimated Average Glucose (eAG) 117 70-126 mg/dL DIAGNOSTICS / RADIOLOGY RESULTS: [ ] PLAN Post I&D Follow aerobic and anaerobic cultures. MRSA coverage with vancomycin. Continue cefepime IV. Monitor renal and liver function. Monitor electrolytes and treat accordingly. DVT and GI prophylaxis. (Protonix and lovenox) A.m. labs NEURO: Minimize central acting medications as possible. Maintain fall precautions, adequate lighting during the day PULMONARY: Supplemental 02 as needed. Maintain aspiration precautions at all times CARDIOVASCULAR: Follow hemodynamics. Vital signs per facility protocol GI & NUTRITION: Continue with nutritional support. Continue stool softeners and laxatives as needed. KIDNEYS & ELECTROLYTES: Strict monitoring of intake, output and overall fluid balance. Avoid nephrotoxic medications to the extent possible. Medications to be dosed according to renal function. Monitor electrolytes and replace as needed ENDOCRINE: Maintain blood glucose between 100-180 at all times. Hypoglycemia protocol in place INFECTIOUS DISEASE: Trend temperature, WBC and procalcitonin level Follow cultures, deescalate antibiotics as soon as possible. Panculture if new onset fever ONCOLOGY/HEMATOLOGY/COAGULATION: Monitor for s/s of bleeding Monitor hemoglobin, coagulation studies as needed SKIN: Pressure ulcer prevention per facility protocol Specialty mattress ORTHO/REHAB: Continue PT/OT Prophylaxis: Continue GI and DVT prophylaxis Code Status: Full Resuscitation Disposition: LANI GUZMAN Nov 07, 2024 00:51
[2024-11-07 04:29] LABS: BASOPHILS # (AUTO) 0.04 K/uL (0.00-0.20); BASOPHILS % (AUTO) 0.7 % (0.0-5.0); EOSINOPHILS # (AUTO) 0.22 K/uL (0.00-0.70); EOSINOPHILS % (AUTO) 3.7 % (0.0-8.0); IMMATURE GRANULOCYTE ABSOLUTE 0.03 K/uL (0-1); LYMPHOCYTES # (AUTO) 2.3 K/uL (1.0-4.8); LYMPHOCYTES % (AUTO) 38.3 % (21.0-51.0); MEAN CORPUSCULAR HEMOGLOBIN 31.3 pg (27.0-33.0); MEAN CORPUSCULAR HGB CONC 33.5 g/dL (32.0-36.0); MEAN CORPUSCULAR VOLUME 93.4 fL (79-99); MONOCYTES # (AUTO) 0.6 K/uL (0.1-1.0); NEUTROPHILS # (AUTO) 2.8 K/uL (1.8-7.7); NEUTROPHILS % (AUTO) 46.8 % (40.0-77.0); PLATELET COUNT (AUTO) 221 K/uL (130-400); RED BLOOD CELL COUNT(AUTO) 3.64 MIL/uL (4.00-5.50)
[2024-11-07 04:40] LABS: CREATININE 0.7 mg/dL (0.5-1.0); POTASSIUM 4.3 mmol/L (3.5-5.1)
--- NOTE | 2024-11-07 18:30 | NUR ---
NURSE NOTE WOUND DRESSING CHANGE, TOLERATED WELL, DENIES ANY PAIN OR DISCOMFORT AT THIS TIME.
[2024-11-08] VITALS: BP 128/72; PULSE 66; RESP 16; TEMP 98.3
--- NOTE | 2024-11-08 00:19 | PN ---
[facility] PROGRESS NOTE Date Patient Seen: Nov 07, 2024 Time of Visit: 00:05 Supervising Physician: Abram Evans MD Primary Care Physician: Dr. Padma Elder Outpatient Specialists: Inpatient Consults: PROBLEM LIST: Sepsis without septic shock, POA, resolving Cellulitis with abscess of left fifth finger with failed outpatient treatment S/P I&D of left 4th and 5th finge 11/05/24 (DR Easton) + STAPHYLOCOCCUS AUREUS Hyperglycemia POA HGA1C 5.7 Uncontrolled hypertension POA Hypercholesterolemia History of thyroid mass INTERVAL HISTORY: [Blood pressure is 143/65 with a heart rate of 79, afebrile on room air. Patient was admitted for cellulitis of her left pinky. Her left digit is severely erythematous and inflamed with posteriorly debris noted. She is unable to bend her pinky due to the swelling. She failed outpatient treatment with Augmentin by her PCP. She has been initiated on clindamycin and cefepime. Her WBC today is 6, hemoglobin 11, platelets 154. Her BNP is within normal limits with a creatinine of 0.6, no electrolyte derangement. Her magnesium was 1.8 and TSH is 0.9. Blood cultures negative after24 hours. Pending wound cultures. Will consult general surgery for I&D.] 11/03 Labs show a WBC of 6, hgb-11, and platelets of 154. BMP is WNL without electrolyte disturbance with a creatinine of 0.6. Blood pressure is 141/73 with HR of 78, afebrile on room air. No osteo per hand X-ray. Blood culture is negative X 48 hrs. She continues on antibiotics, pending general surgery for I&D. Update: Nurse informed me that Dr. Davis does not perform I&D's on hand, will consult orthopedic surgery. 11/04-patient is awake alert and oriented x3. Patient reports pain to LEs 4th and 5th fingers. Otherwise no other complaints she is in no apparent distress. Left 4th and 5th fingers with swelling and redness. Left 5th finger with crusty drainage with dark discoloration and yellow scab. Instructed RN to marked with skin marker in order to assess any increasing redness swelling. Per orthopedic surgeon Dr Easton patient to be scheduled tomorrow for incision and drainage. We will add MRSA coverage with vancomycin and continue with cefepime. stop clindamycin for now. Blood cultures has been negative for three days. Patient is hemodynamically stable and afebrile saturating 97% on room air. On laboratory CBC unremarkable, chemistry unremarkable with magnesium of 2.5. 11/05/24- patient is awake alert and oriented x3. Denies any complaints she is in no apparent distress hemodynamically stable and afebrile. She is status post I&D of left 4th and 5th finger. Dressing clean dry and intact with splint and Robert wrap. Capillary refill less than 2 seconds to all fingers to left hand. Otherwise laboratory unremarkable. She continues with cefepime and vancomycin. Pending wound cultures. 11/06/24- pt with no major overnight events, wound care pending for today to left hand fingers w/ cap refill < 2 seconds. she reports pain is under control. Cultures pending. she continues on Cefepime and vancomycin for now. she will need DC planning for wound care. for now awaiting recs from ortho. lab unremarkable, 11/07/24 - pt is awake alert and oriented x 3 . Continues with wound care Open to left 5th finger approximately 3 cm in lenght and 2cm in width with tunneling left 5th finger proximal open 3cm in lenght and approximately 1cm width and with tunneling. Per Dr Easton continue with wound care with packing and family teaching . Pt may follow up at his office in 2 weeks. OK to DC from his standpoint. For now awaiting culture currently positive for STAPHYLOCOCCUS AUREUS, awaiting sensitivity. REVIEW OF SYSTEMS: General: No malaise or fever. Neurological: No fainting episodes or seizures. HEENT: No nasal congestion or nasal secretion. Respiratory: No cough, shortness of breath, or wheezing Cardiac: No chest pain or palpitations. Gastrointestinal: No vomiting or diarrhea. Genitourinary: No dysuria hematuria. Skin: No rashes or lesions. Hematological: No bruises or bleeding. Musculoskeletal:occasional breakthrough pain to left I&D site Psychiatric: No depression or panic attacks. PHYSICAL EXAM: GENERAL: Alert, awake oriented x 3 HEENT: EOMI, Sclera non icteric, moist mucosa NECK: Supple, no JVD, trachea midline LUNGS: Clear breath sounds bilaterally. No wheezes HEART: Regular rate and rhythm. Normal S1 and S2, without murmurs ABD: Abdomen soft, nontender. Bowel sounds present EXT: No clubbing cyanosis or edema. dressing to left hand cleand dry and intact, dressing CDI, splint in place. cap refill < 2 secs to all fingers. NEURO: Alert and oriented to person, follows commands Vital Signs (last 8hr) Date Time Temp Pulse Resp B/P (MAP) Pulse Ox O2 Delivery O2 Flow Rate FiO2 11/07/24 20:00 97.9 65 18 141/74 97 Room Air LABS: Hematology Labs: Test 11/07/24 04:04 Range/Units White Blood Count 6.0 # 4.8-10.8 K/uL Red Blood Count 3.64 L 4.00-5.50 MIL/uL Hemoglobin 11.4 L 12.0-16.0 g/dL Hematocrit 34.0 L 36-48 % Mean Corpuscular Volume 93.4 79-99 fL Mean Corpuscular Hemoglobin 31.3 27.0-33.0 pg Mean Corpuscular Hemoglobin Concent 33.5 32.0-36.0 g/dL Red Cell Distribution Width 13.0 11.0-15.5 % Platelet Count 221 130-400 K/uL Mean Platelet Volume 10.4 7.5-10.5 fL Immature Granulocyte % (Auto) 0.5 0-1 % Neutrophils (%) (Auto) 46.8 40.0-77.0 % Lymphocytes (%) (Auto) 38.3 21.0-51.0 % Monocytes (%) (Auto) 10.0 3.0-13.0 % Eosinophils (%) (Auto) 3.7 0.0-8.0 % Basophils (%) (Auto) 0.7 0.0-5.0 % Neutrophils # (Auto) 2.8 1.8-7.7 K/uL Lymphocytes # (Auto) 2.3 1.0-4.8 K/uL Monocytes # (Auto) 0.6 0.1-1.0 K/uL Eosinophils # (Auto) 0.22 0.00-0.70 K/uL Basophils # (Auto) 0.04 0.00-0.20 K/uL Absolute Immature Granulocyte (auto 0.03 0-1 K/uL Nucleated Red Blood Cells 0.0 0.0-0.19 % Chemistry Labs: Test 11/07/24 19:55 11/07/24 04:04 Range/Units Whole Blood Glucose 125 H 70-110 MG/DL Sodium Level 143 136-145 mmol/L Potassium Level 4.3 3.5-5.1 mmol/L Chloride Level 109 101-111 mmol/L Carbon Dioxide Level 29 21-32 mmol/L Blood Urea Nitrogen 10 7-18 mg/dL Creatinine 0.7 0.5-1.0 mg/dL Glomerular Filtration Rate Calc 92 >90 mL/min Random Glucose 83 70-105 mg/dL Total Calcium 8.6 8.5-10.1 mg/dL DIAGNOSTICS / RADIOLOGY RESULTS: [ ] PLAN Post I&D Follow cultures . MRSA coverage with vancomycin. Continue cefepime IV. Monitor renal and liver function. Monitor electrolytes and treat accordingly. DVT and GI prophylaxis. (Protonix and lovenox) A.m. labs family teaching on wound care and packing with iodoform May take over the counter tylenol and motrin for pain F/U with Dr Easton in office in [address] weeks[address] Easton standpoint. NEURO: Minimize central acting medications as possible. Maintain fall precautions, adequate lighting during the day PULMONARY: Supplemental 02 as needed. Maintain aspiration precautions at all times CARDIOVASCULAR: Follow hemodynamics. Vital signs per facility protocol GI & NUTRITION: Continue with nutritional support. Continue stool softeners and laxatives as needed. KIDNEYS & ELECTROLYTES: Strict monitoring of intake, output and overall fluid balance. Avoid nephrotoxic medications to the extent possible. Medications to be dosed according to renal function. Monitor electrolytes and replace as needed ENDOCRINE: Maintain blood glucose between 100-180 at all times. Hypoglycemia protocol in place INFECTIOUS DISEASE: Trend temperature, WBC and procalcitonin level Follow cultures, deescalate antibiotics as soon as possible. Panculture if new onset fever ONCOLOGY/HEMATOLOGY/COAGULATION: Monitor for s/s of bleeding Monitor hemoglobin, coagulation studies as needed SKIN: Pressure ulcer prevention per facility protocol Specialty mattress ORTHO/REHAB: Continue PT/OT Prophylaxis: Continue GI and DVT prophylaxis Code Status: Full Resuscitation Disposition: LANI GUZMAN Nov 08, 2024 00:19
[2024-11-08 04:00] VITALS: BP 144/77; PULSE 67; RESP 17; TEMP 97.8
[2024-11-08 08:00] VITALS: O2SAT 97
[2024-11-08 08:26] VITALS: BP 138/71; PULSE 76; RESP 18; TEMP 98.1
[2024-11-08] MEDS: LISINOPRIL 10 MG TABLET PO SCH (09:01)
[2024-11-08 11:54] VITALS: BP 126/79; PULSE 72; RESP 18; TEMP 97.8
--- NOTE | 2024-11-08 15:00 | NUR ---
WOUND DRESSING MILLER: PATIENT INSTRUCTED AND DEMONSTRATED HOW TO DO DRESSING CHANGE. DRESSING CHANGE DONE.
[2024-11-08 16:48] VITALS: BP 140/76; PULSE 69; RESP 18; TEMP 98.1
--- NOTE | 2024-11-08 16:58 | NUR ---
RE: COST OF ZYVOX SPOKE TO PHARMACIST STEPAN @ [facility] [address] CO-PAY OF ZYVOX 600MG PO BID X10 DAYS IS $24.61. FAMILY IS OK WITH COST. PER STEPAN WILL HAVE RX READY IN 15 MINUTES FOR [facility] [facility] [employer] D/T [facility] @ 1800. SPOKE TO LANI BISWAS NP AND SHE WILL PLACE DC ORDER TODAY
--- NOTE | 2024-11-08 17:24 | DS ---
[facility] DISCHARGE SUMMARY Date Patient Seen: Nov 08, 2024 Time of Visit: 17:24 Supervising Physician: Filiberto Escobedo MD Primary Care Physician: Dr. Padma Elder Outpatient Specialists: Inpatient Consults: PROBLEM LIST: Sepsis without septic shock, POA, resolving Cellulitis with abscess of left fifth finger with failed outpatient treatment S/P I&D of left 4th and 5th finge 11/05/24 (DR Easton) + STAPHYLOCOCCUS AUREUS Hyperglycemia POA HGA1C 5.7 Uncontrolled hypertension POA Hypercholesterolemia History of thyroid mass HOSPITAL COURSE: HPI 11/01/24-Ms. King is a 69-year-old female with a history of diabetes mellitus and hypertension who presented to [facility] for evaluation of left finger edema and pustule onset one week prior to arrival. She reports that she believes that this was caused by insect bite. The patient reported that she was started on Augmentin 875 mg for several days by her PCP with no improvement. The patient denied any fevers, chills, any other problem or concern. The patient presented with a temperature 99.0 F, heart rate 102, respirations 20, blood pressure 162/82, 97% room air. WBC & lactic acid are WNL neut % 78.9, lymph % 11.9, neut # 8.3. Glusoce 118. The ED administered IV fluids, Toradol, and clindamycin 900 mg load. 11/02/24-[Blood pressure is 143/65 with a heart rate of 79, afebrile on room air. Patient was admitted for cellulitis of her left pinky. Her left digit is severely erythematous and inflamed with posteriorly debris noted. She is unable to bend her pinky due to the swelling. She failed outpatient treatment with Augmentin by her PCP. She has been initiated on clindamycin and cefepime. Her WBC today is 6, hemoglobin 11, platelets 154. Her BNP is within normal limits with a creatinine of 0.6, no electrolyte derangement. Her magnesium was 1.8 and TSH is 0.9. Blood cultures negative after24 hours. Pending wound cultures. Will consult general surgery for I&D.] 11/03/24- Labs show a WBC of 6, hgb-11, and platelets of 154. BMP is WNL without electrolyte disturbance with a creatinine of 0.6. Blood pressure is 141/73 with HR of 78, afebrile on room air. No osteo per hand X-ray. Blood culture is negative X 48 hrs. She continues on antibiotics, pending general surgery for I&D. Update: Nurse informed me that Dr. Davis does not perform I&D's on hand, will consult orthopedic surgery. 11/04-patient is awake alert and oriented x3. Patient reports pain to LEs 4th and 5th fingers. Otherwise no other complaints she is in no apparent distress. Left 4th and 5th fingers with swelling and redness. Left 5th finger with crusty drainage with dark discoloration and yellow scab. Instructed RN to marked with skin marker in order to assess any increasing redness swelling. Per orthopedic surgeon Dr Easton patient to be scheduled tomorrow for incision and drainage. We will add MRSA coverage with vancomycin and continue with cefepime. stop clindamycin for now. Blood cultures has been negative for three days. Patient is hemodynamically stable and afebrile saturating 97% on room air. On laboratory CBC unremarkable, chemistry unremarkable with magnesium of 2.5. 11/05/24- patient is awake alert and oriented x3. Denies any complaints she is in no apparent distress hemodynamically stable and afebrile. She is status post I&D of left 4th and 5th finger. Dressing clean dry and intact with splint and Robert wrap. Capillary refill less than 2 seconds to all fingers to left hand. Otherwise laboratory unremarkable. She continues with cefepime and vancomycin. Pending wound cultures. 11/06/24- pt with no major overnight events, wound care pending for today to left hand fingers w/ cap refill < 2 seconds. she reports pain is under control. Cultures pending. she continues on Cefepime and vancomycin for now. she will need DC planning for wound care. for now awaiting recs from ortho. lab unremarkable, 11/07/24 - pt is awake alert and oriented x 3 . Continues with wound care Open to left 5th finger approximately 3 cm in lenght and 2cm in width with tunneling left 5th finger proximal open 3cm in lenght and approximately 1cm width and with tunneling. Per Dr Easton continue with wound care with packing and family teaching . Pt may follow up at his office in 2 weeks. OK to DC from his standp oint. For now awaiting culture currently positive for STAPHYLOCOCCUS AUREUS, awaiting sensitivity. 11/08/24 Pt is awake alert and orients. hemodynamically stable and afebrile. she is stable for discharge has been evaluated by Dr Salazar who agreed with Zyvox 600mg po bid x 10 days. She will need to f/u with PCP in 1- 3 days to get referral to wound care center as recommended to her by the wound care team here. She is in agreement with POC. Medication Zyvox was called in by her nurse and verified copay was 24$, per pt she is able to pay that and obtain medication today. 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 PROCEDURES: as mentioned above DISCHARGE MEDICATIONS: Zyvox 600mg po BID x 10 days. called in to [facility] on [facility]. Pt hemodynamically stable and afebrile at time of discharge. PCP notified of patients admission, hospital course and discharge. Continued Medications: Alendronate Sodium (Alendronate Sodium) 70 Mg Tablet 1 TAB PO QWEEK Atorvastatin Calcium (Atorvastatin Calcium) 10 Mg Tablet 1 TAB PO HS for cholesterol [[id number]] () 1 TAB PO BID Multivitamin (Multi Vitamin Daily) 1 Each Tablet 1 TAB PO DAILY for 30 Days, #30 TAB 0 Refills PHYSICAL EXAM: GENERAL: Alert, awake oriented x 3 HEENT: EOMI, Sclera non icteric, moist mucosa NECK: Supple, no JVD, trachea midline LUNGS: Clear breath sounds bilaterally. No wheezes HEART: Regular rate and rhythm. Normal S1 and S2, without murmurs ABD: Abdomen soft, nontender. Bowel sounds present EXT: No clubbing cyanosis or edema. dressing to left hand cleand dry and intact, dressing CDI, splint in place. cap refill < 2 secs to all fingers. NEURO: Alert and oriented to person, follows commands FOLLOW-UP: Follow-up with PCP in 2-3 days, ask for referral to wound care center as recommended by wound care pink. Follow up with Dr Easton in 2 weeks. May follow up with Dr Salazar office in 1 week. RECOMMENDATIONS: See Discharge Instructions This case was seen and discussed with my supervising physician. More than 30 minutes spent on discharge process, including evaluation of the patient, discussion with nursing staff, medication reconciliation and follow-up appointments LANI BISWAS Nov 08, 2024 17:24
--- NOTE | 2024-11-08 19:08 | NUR ---
D/C INSTRUCTIONS D/C INSTRUCTIONS GIVEN AND ACKNOWLEDGED. IV REMOVED. WOUND CARE DONE AND PHOTO TAKEN. ZYVOX ALREADY PICKED UP BY SON
--- NOTE | 2024-11-10 01:24 | CONS ---
INFECTIOUS DISEASE CONSULTATION DATE OF SERVICE: 11/08/2024 REQUESTING PHYSICIAN: Elsa Gerardo NP REASON FOR CONSULTATION: Left hand abscess and cellulitis. HISTORY OF PRESENT ILLNESS: A 69-year-old female with history of diabetes mellitus, hypertension, and dyslipidemia, who presented to the hospital with left finger pain, swelling, and redness. The patient's symptoms started a few weeks prior to presentation. The patient was receiving an antibiotic, Augmentin, but due to increasing pain and fever, came to the Emergency Room. The patient was seen by Orthopedics and underwent surgery involving drainage of dorsum of the left hand. Wound culture came back with MRSA. The patient at present is on vancomycin and cefepime. No nausea or vomiting. No diarrhea. No bleeding tendency. . No trauma, no fall. PAST MEDICAL HISTORY: * Diabetes mellitus. * Hypertension. * Dyslipidemia. PAST SURGICAL HISTORY: None. ALLERGIES: No known drug allergy. CURRENT MEDICATIONS: Include: * Vancomycin. * Cefepime. * Lipitor. * Morphine. * Insulin. SOCIAL HISTORY: No alcohol, tobacco, or illicit drug use. FAMILY HISTORY: Positive for diabetes mellitus. REVIEW OF SYSTEMS: Greater than 10 systems were reviewed, negatives except as documented above. PHYSICAL EXAMINATION: GENERAL: Elderly female, awake. VITAL SIGNS: Temperature 97.9, pulse 72, respiratory rate 18, BP 126/79. EYES: No icterus. Pupils are equal and reactive. HENT: No oral thrush seen. Moist oral mucosa. NECK: Supple. No JVD or thyromegaly. LUNGS: Good air entry. No rales, no rhonchi. CARDIOVASCULAR SYSTEM: S1, S2 regular. No murmur heard. ABDOMEN: Full, soft, nontender. Bowel sound is present. CENTRAL NERVOUS SYSTEM: Awake, alert, oriented x 3. No focal deficits. SKIN: No rashes, no itchiness. LYMPHATIC: No peripheral lymphadenopathy. BACK: No deformity, no pressure ulcer. EXTREMITIES: Area of abscess involving dorsum of the left hand and left fifth finger. Surrounding edema and cellulitis. No purulent drainage. LABORATORY DATA: Sodium 143, potassium 4.2, BUN 9, creatinine 0.7. WBC 6.0, hemoglobin 11.4, platelets 221. Left hand wound culture growing MRSA. Blood culture, no growth for 5 days. RADIOLOGY: X-ray of the left hand shows soft tissue swelling. ASSESSMENT: A 69-year-old female presenting with left arm pain, swelling, and redness. CURRENT PROBLEMS: Include: * Left hand abscess, status post incision and drainage. * Left upper extremity cellulitis. * Diabetes mellitus. * . * Anemia. * Hypertension. PLAN: * Continue vancomycin. * Discontinue cefepime. * Continue wound care. * Continue pain management. * Continue antidiabetic. * Continue nutritional support. * Continue DVT prophylaxis. * Monitor electrolytes. * The patient will be followed up closely. Thank you for allowing me to participate in the care of this patient. TID: [id number] RECEIPT: [id number]
== END 2024-11-08 19:15 | disposition home or self-care (01) | DRG 854 ==
LOC: EDH 14:31 → EDHIP 18:10 → OBSVTOIN 18:10 → 3AH 20:15
PROVIDERS: ADMIT Internal Medicine; ATTEND Internal Medicine
PROC: 0L980ZZ Drainage of Left Hand Tendon, Open Approach (ICD-10-PCS; principal; 2024-11-05 11:10)
DX: A41.9 Sepsis, unspecified organism (principal); L02.512 Cutaneous abscess of left hand; E11.65 Type 2 diabetes mellitus with hyperglycemia; L03.012 Cellulitis of left finger; I10 Essential (primary) hypertension; E78.00 Pure hypercholesterolemia, unspecified; E07.9 Disorder of thyroid, unspecified; M65.90 Unspecified synovitis and tenosynovitis, unspecified site; W57.XXXA Bitten or stung by nonvenomous insect and other nonvenomous arthropods, initial encounter; K59.00 Constipation, unspecified; Z83.3 Family history of diabetes mellitus; D64.9 Anemia, unspecified
CPT/HCPCS: 36415; 73130; 80048; 80053; 80202; 82550; 82948; 83036; 83605; 83735; 84100; 84443; 85025; 85027; 85610; 87040; 87070; 87076; 87086; 87186; 87205; 96365; 96366; 96375; 99285; G0378; J0692; J1100; J1650; J1815; J1885; J2003; J2250; J2270; J2405; J2704; J3010; J3475; J3490; J7030; A4649; A4930; J3370

== ENCOUNTER → 2024-11-13 | Outpatient (CLI) | payer OTHER ==
[~2024-11-13] MED LIST changes: +ALEN70TA80 PO; +ATOR10TA69 PO; +CALCIUM PO; +CHOLECALCIFEROL PO; -IOHEXOL 350 MG/ML 100ML INFUS..BTL IV ONE; +LIDOCAINE HCL 4% LTA SOL 4 ML VIAL TP ONE; +MULT-1203 PO
== END | disposition home or self-care (01) ==
LOC: WHH 10:09
PROVIDERS: ATTEND Family Medicine
DX: T81.89XA Other complications of procedures, not elsewhere classified, initial encounter (principal); S61.402A Unspecified open wound of left hand, initial encounter; L98.492 Non-pressure chronic ulcer of skin of other sites with fat layer exposed; I10 Essential (primary) hypertension; E78.00 Pure hypercholesterolemia, unspecified; M47.812 Spondylosis without myelopathy or radiculopathy, cervical region; X58.XXXA Exposure to other specified factors, initial encounter; Y83.8 Other surgical procedures as the cause of abnormal reaction of the patient, or of later complication, without mention of misadventure at the time of the procedure; Y92.238 Other place in hospital as the place of occurrence of the external cause; Y93.89 Activity, other specified; Y92.89 Other specified places as the place of occurrence of the external cause; Y99.8 Other external cause status
CPT/HCPCS: G0463; A4450

== ENCOUNTER → 2024-11-20 | Outpatient (CLI) | payer OTHER ==
[~2024-11-20] MED LIST changes: -LIDOCAINE HCL 4% LTA SOL 4 ML VIAL TP ONE
--- NOTE | 2024-11-20 12:28 | HMCIMG ---
HAND 3+VWS LT REASON: OPEN WOUND, LEFT HAND ABSCESS TECHNIQUE: 3 views were obtained. FINDINGS: There are severe degenerative changes first carpometacarpal joint. Joint spaces appear otherwise preserved. Bones appear unremarkable. Soft tissues appear normal. IMPRESSION: 1. Severe osteoarthritis in the first carpometacarpal joint.
== END | disposition home or self-care (01) ==
LOC: WHH 09:17
PROVIDERS: ATTEND Family Medicine
DX: T81.89XD Other complications of procedures, not elsewhere classified, subsequent encounter (principal); S61.402D Unspecified open wound of left hand, subsequent encounter; L98.492 Non-pressure chronic ulcer of skin of other sites with fat layer exposed; I10 Essential (primary) hypertension; E78.00 Pure hypercholesterolemia, unspecified; M47.812 Spondylosis without myelopathy or radiculopathy, cervical region; X58.XXXD Exposure to other specified factors, subsequent encounter; Y83.8 Other surgical procedures as the cause of abnormal reaction of the patient, or of later complication, without mention of misadventure at the time of the procedure
CPT/HCPCS: 73130; G0463

== ENCOUNTER → 2024-11-27 | Outpatient (CLI) | payer OTHER | END | disposition home or self-care (01) | LOC: WHH 09:22 | PROVIDERS: ATTEND Family Medicine | DX: T81.89XD Other complications of procedures, not elsewhere classified, subsequent encounter (principal); S61.402D Unspecified open wound of left hand, subsequent encounter; E11.622 Type 2 diabetes mellitus with other skin ulcer; L98.498 Non-pressure chronic ulcer of skin of other sites with other specified severity; I10 Essential (primary) hypertension; E78.00 Pure hypercholesterolemia, unspecified; M47.812 Spondylosis without myelopathy or radiculopathy, cervical region; X58.XXXD Exposure to other specified factors, subsequent encounter; Y83.8 Other surgical procedures as the cause of abnormal reaction of the patient, or of later complication, without mention of misadventure at the time of the procedure | CPT/HCPCS: G0463 ==